=== PATIENT | female | born 1990 | race Caucasian/White ===

== ENCOUNTER 2017-02-20 17:35 | Emergency (ER) | payer BC ==
[~2017-02-20] VITALS: Ht 165.1 cm; Wt 74.8 kg
[~2017-02-20 17:35] MED LIST: ALPR0.254 PO; ALPR0.5T6 PO; DOCU-109 PO; ERYT250T14 PO; LAMO200T3 PO; LAMO25TA PO; METO5VIA4 PO; ONDA4TAB10 SL; OXYC1TAB7 PO; PROM25SU32 PO
[2017-02-20] MEDS ORDERED: FAMOTIDINE 20 MG TABLET. PO ONE (18:00)
[2017-02-20] MEDS ORDERED: HALOPERIDOL LACTATE 5 MG/ML VIAL. IVP ONE (18:00)
[2017-02-20] MEDS ORDERED: IV NORMAL SALINE 1000ML BAG 1,000 ML IV ONE (18:00)
[2017-02-20 18:14] LABS: BASO # 0.1 x10^3/uL (0.0-0.2); BASO % 0 % (0-3); EOS % 0 % (0-3); HEMOGLOBIN 14.8 g/dL (12.0-15.5); LYMPH # 0.8 x10^3/uL (1.0-4.8); LYMPH % 6 % (24-48); MEAN CORPUSCULAR HEMOGLOBIN 31 pg (25-35); MEAN CORPUSCULAR HGB CONC 35 g/dL (31-37); MEAN CORPUSCULAR VOLUME 89 fL (79-100); MONO % 2 % (0-9); NEUT % 92 % (31-73); PLATELET COUNT 364 x10^3/uL (140-400); RED BLOOD COUNT 4.72 x10^6/uL (3.50-5.40); RED CELL DISTRIBUTION WIDTH 13.6 % (11.5-14.5)
[2017-02-20 18:15] LABS: BILIRUBIN,URINE NEGATIVE (NEG); GLUCOSE,URINE 100 mg/dL (NEG); NITRITE,URINE NEGATIVE (NEG); PH,URINE 7.5; PROTEIN,URINE NEGATIVE (NEG-TRACE); UROBILINOGEN,URINE 0.2 mg/dL (0.2 mg/dL)
[2017-02-20 18:17] LABS: BARBITURATES NEG (NEG); BENZODIAZEPINES NEG (NEG); CANNABINOIDS POS (NEG); COCAINE NEG (NEG); METHADONE NEG (NEG); OPIATES POS (NEG); PHENCYCLIDINE NEG (NEG)
[2017-02-20 18:36] LABS: ALBUMIN 4.5 g/dL (3.4-5.0); ALBUMIN/GLOBULIN RATIO 1.3 (1.0-1.7); CALCIUM 8.9 mg/dL (8.5-10.1); CREATININE 0.7 mg/dL (0.6-1.0); GFR 101.1; MAGNESIUM 1.7 mg/dL (1.8-2.4); POTASSIUM 3.7 mmol/L (3.5-5.1); TOTAL BILIRUBIN 0.8 mg/dL (0.2-1.0)
[2017-02-20 18:37] LABS: BACTERIA,URINE FEW /HPF (0-FEW); SQUAMOUS EPITHELIAL CELL,UR MOD /LPF; WBC,URINE 0 /HPF (0-4)
[2017-02-20] MEDS ORDERED: IOHEXOL 300 MG/ML 75 ML VIAL IV ONE (19:00)
[2017-02-20] MEDS ORDERED: CONTRAST GIVEN MC PRN (19:00)
[2017-02-20] MEDS ORDERED: ONDA4TAB10 PO (19:39)
--- NOTE | 2017-02-20 19:39 | PHYS DOC ---
Past Medical History Past Medical History: Anxiety, Bipolar, Depression Additional Past Medical Histor: GASTROPARESIS Past Surgical History: Cholecystectomy Additional Past Surgical Histo: EYE SX Alcohol Use: None Drug Use: Marijuana Social History Narrative: last use today Adult General Chief Complaint Chief Complaint: NAUSEA/VOMITING/DIARRHA HPI HPI Patient is a 26 year old female presenting to the emergency department for evaluation of abdominal pain nausea vomiting that has been going on since this morning. She has been diagnosed with gastroparesis and cyclic vomiting syndrome. Patient is fairly honest with me and says that she smokes marijuana every day. Pain is diffuse and emesis is nonbloody and nonbilious and she says that she is having normal bowel movements. Patient denies any fevers chills dysuria hematuria vaginal bleeding vaginal discharge. Of note patient was just at [employer] [place] prior to coming here and she says the Reglan and Dilaudid did not help. Review of Systems Review of Systems Constitutional: Denies fever or chills [] Respiratory: Denies cough or shortness of breath [] Cardiovascular: No additional information not addressed in HPI [] GI: + abdominal pain, nausea, vomiting. No bloody stools or diarrhea [] : Denies dysuria or hematuria [] Musculoskeletal: Denies back pain or joint pain [] Current Medications Current Medications Current Medications Medications (Trade) Dose Ordered Sig/Oumar Start Time Stop Time Status Last Admin Dose Admin Famotidine (Pepcid) 20 mg 1X ONCE 02/20/17 18:00 02/20/17 18:01 DC 02/20/17 18:19 20 MG Haloperidol Lactate (Haldol) 5 mg 1X ONCE 02/20/17 18:00 02/20/17 18:01 DC 02/20/17 18:19 5 MG Info (Do NOT chart on this entry -- for MONITORING) 1 each PRN DAILY PRN 02/20/17 19:00 02/20/17 20:01 DC Iohexol (Omnipaque 300 Mg/ml) 75 ml 1X ONCE 02/20/17 19:00 02/20/17 19:01 DC 02/20/17 19:14 75 ML Sodium Chloride 1,000 ml @ 1,000 mls/hr 1X ONCE 02/20/17 18:00 02/20/17 18:59 DC 02/20/17 18:19 1,000 MLS/HR Allergies Allergies Allergies Coded Allergies Type Severity Reaction Last Updated Verified No Known Drug Allergies 08/18/15 No Physical Exam Physical Exam Constitutional: Well developed, well nourished, no acute distress, non-toxic appearance. [] Cardiovascular:Heart rate regular rhythm, no murmur [] Lungs & Thorax: Bilateral breath sounds clear to auscultation [] Abdomen: Bowel sounds normal, soft, + diffuse mild tenderness, no rebound or guarding, no masses, no pulsatile masses. [] Current Patient Data Vital Signs Vital Signs Date Time Temp Pulse Resp B/P (MAP) Pulse Ox O2 Delivery O2 Flow Rate FiO2 02/20/17 17:40 98.0 49 18 150/88 (108) 99 Room Air 98.0 Lab Values Laboratory Tests Test 02/20/17 17:04 02/20/17 17:50 02/20/17 17:52 POC Urine HCG, Qualitative Hcg negative (Negative) Urine Collection Type Unknown Urine Color Yellow Urine Clarity Clear Urine pH 7.5 Urine Specific [place] 1.025 Urine Protein Negative mg/dL (NEG-TRACE) Urine Glucose (UA) 100 mg/dL (NEG) Urine Ketones (Stick) 40 mg/dL (NEG) Urine Blood Negative (NEG) Urine Nitrite Negative (NEG) Urine Bilirubin Negative (NEG) Urine Urobilinogen Dipstick 0.2 mg/dL (0.2 mg/dL) Urine Leukocyte Esterase Negative (NEG) Urine RBC 6-10 /HPF (0-2) Urine WBC 0 /HPF (0-4) Urine Squamous Epithelial Cells Mod /LPF Urine Bacteria Few /HPF (0-FEW) Urine Mucus Marked /LPF Urine Opiates Screen Pos (NEG) Urine Methadone Screen Neg (NEG) Urine Barbiturates Neg (NEG) Urine Phencyclidine Screen Neg (NEG) Urine Amphetamine/Methamphetamine Neg (NEG) Urine Benzodiazepines Screen Neg (NEG) Urine Cocaine Screen Neg (NEG) Urine Cannabinoids Screen Pos (NEG) Urine Ethyl Alcohol Neg (NEG) White Blood Count 15.0 x10^3/uL (4.0-11.0) H Red Blood Count 4.72 x10^6/uL (3.50-5.40) Hemoglobin 14.8 g/dL (12.0-15.5) Hematocrit 42.0 % (36.0-47.0) Mean Corpuscular Volume 89 fL (79-100) Mean Corpuscular Hemoglobin 31 pg (25-35) Mean Corpuscular Hemoglobin Concent 35 g/dL (31-37) Red Cell Distribution Width 13.6 % (11.5-14.5) Platelet Count 364 x10^3/uL (140-400) Neutrophils (%) (Auto) 92 % (31-73) H Lymphocytes (%) (Auto) 6 % (24-48) L Monocytes (%) (Auto) 2 % (0-9) Eosinophils (%) (Auto) 0 % (0-3) Basophils (%) (Auto) 0 % (0-3) Neutrophils # (Auto) 13.8 x10^3uL (1.8-7.7) H Lymphocytes # (Auto) 0.8 x10^3/uL (1.0-4.8) L Monocytes # (Auto) 0.3 x10^3/uL (0.0-1.1) Eosinophils # (Auto) 0.0 x10^3/uL (0.0-0.7) Basophils # (Auto) 0.1 x10^3/uL (0.0-0.2) Segmented Neutrophils % 90 % (35-66) H Band Neutrophils % 2 % (0-9) Lymphocytes % 6 % (24-48) L Monocytes % 2 % (0-10) Platelet Estimate Adequate (ADEQUATE) Sodium Level 140 mmol/L (136-145) Potassium Level 3.7 mmol/L (3.5-5.1) Chloride Level 104 mmol/L (98-107) Carbon Dioxide Level 21 mmol/L (21-32) Anion Gap 15 (6-14) H Blood Urea Nitrogen 8 mg/dL (7-20) Creatinine 0.7 mg/dL (0.6-1.0) Estimated GFR (Cockcroft-Gault) 101.1 BUN/Creatinine Ratio 11 (6-20) Glucose Level 140 mg/dL (70-99) H Calcium Level 8.9 mg/dL (8.5-10.1) Magnesium Level 1.7 mg/dL (1.8-2.4) L Total Bilirubin 0.8 mg/dL (0.2-1.0) Aspartate Amino Transferase (AST) 17 U/L (15-37) Alanine Aminotransferase (ALT) 29 U/L (14-59) Alkaline Phosphatase 60 U/L (46-116) Total Protein 8.0 g/dL (6.4-8.2) Albumin 4.5 g/dL (3.4-5.0) Albumin/Globulin Ratio 1.3 (1.0-1.7) Lipase 68 U/L (73-393) L Ethyl Alcohol Level < 10 mg/dL (0-10) Laboratory Tests 02/20/17 17:52 Laboratory Tests 02/20/17 17:52 EKG EKG [] Radiology/Procedures Radiology/Procedures CT abdomen and pelvis with contrast History: Diffuse abdominal pain today Technique: After the administration of intravenous contrast, CT imaging was performed of the abdomen and pelvis. No oral contrast was given as per request. Multiplanar images are reviewed. Exposure: One or more of the following individualized dose reduction techniques were utilized for this examination: 1. Automated exposure control 2. Adjustment of the mA and/or kV according to patient size 3. Use of iterative reconstruction technique. Contrast: 75 cc Omnipaque 300 Comparison: August 23, 2015 Findings: There is no significant abnormality of the visualized lung bases. There is no significant abnormality of the liver, spleen, pancreas, adrenal glands. Both kidneys enhance without hydronephrosis. There has been cholecystectomy. Accurate evaluation of bowel is limited without oral contrast. There is some questionable diffuse mild wall prominence of the colon from the hepatic flexure to the splenic flexure. There is no adjacent inflammatory change. Appendix is not clearly identified. There is no evidence of bowel obstruction, free fluid, or free air. There is now IUD. The bladder has a normal configuration. There is no significant lymphadenopathy. No significant osseous abnormality is identified. Impression: 1. Poorly evaluated without oral contrast, there may be some mild wall thickening diffusely of the transverse colon, colitis a possibility. However there is no significant adjacent inflammatory-type change. Appendix is not clearly identified. Electronically signed by: Julia Bermeo MD (02/20/2017 7:40 PM) [facility] DICTATED and SIGNED BY: JULIA BERMEO MD DATE: 02/20/171931 Course & Med Decision Making Course & Med Decision Making Patient likely has cannabis hyperemesis syndrome and I explained this to the patient. Patient says that she is going to stop smoking marijuana. She is out walking in the hallway asking to be discharged that she has no further nausea vomiting or pain. He has a nonspecific CT findings that I am not going to start her on antibiotics. Patient aware and agreeable with plan for discharge and verbalized understanding of the need for short-term follow-up and strict ER return precautions discussed including worsening pain fevers vomiting or other general concerns. Dragon Disclaimer Dragon Disclaimer This electronic medical record was generated, in whole or in part, using a voice recognition dictation system. Departure Departure Impression: Primary Impression: Nausea and vomiting Additional Impressions: Abdominal pain Leukocytosis Cannabis abuse Disposition: 01 HOME, SELF-CARE Condition: GOOD Referrals: CHRISTY JOVEL (PCP) Patient Instructions: Nausea and Vomiting Scripts Ondansetron (ZOFRAN ODT) 4 Mg Tab.rapdis 4 MG PO BID Y for NAUSEA/VOMITING, #10 TAB Prov: JENN ACE DO 02/20/17 Problem Qualifiers Primary Impression: Nausea and vomiting Vomiting type: unspecified Vomiting Intractability: non-intractable Qualified Codes: R11.2 - Nausea with vomiting, unspecified JENN ACE DO Feb 20, 2017 19:39
[2017-02-20 19:40] VITALS: BP 109/68
--- NOTE | 2017-02-20 19:44 | RAD ---
CT abdomen and pelvis with contrast History: Diffuse abdominal pain today Technique: After the administration of intravenous contrast, CT imaging was performed of the abdomen and pelvis. No oral contrast was given as per request. Multiplanar images are reviewed. Exposure: One or more of the following individualized dose reduction techniques were utilized for this examination: 1. Automated exposure control 2. Adjustment of the mA and/or kV according to patient size 3. Use of iterative reconstruction technique. Contrast: 75 cc Omnipaque 300 Comparison: August 23, 2015 Findings: There is no significant abnormality of the visualized lung bases. There is no significant abnormality of the liver, spleen, pancreas, adrenal glands. Both kidneys enhance without hydronephrosis. There has been cholecystectomy. Accurate evaluation of bowel is limited without oral contrast. There is some questionable diffuse mild wall prominence of the colon from the hepatic flexure to the splenic flexure. There is no adjacent inflammatory change. Appendix is not clearly identified. There is no evidence of bowel obstruction, free fluid, or free air. There is now IUD. The bladder has a normal configuration. There is no significant lymphadenopathy. No significant osseous abnormality is identified. Impression: 1. Poorly evaluated without oral contrast, there may be some mild wall thickening diffusely of the transverse colon, colitis a possibility. However there is no significant adjacent inflammatory-type change. Appendix is not clearly identified. Electronically signed by: Keith Urbina MD (02/20/2017 7:40 PM) [facility]
[2017-02-20 19:54] LABS: PLT ESTIMATE ADEQUATE (ADEQUATE)
== END 2017-02-20 19:52 | disposition home or self-care (01) ==
LOC: ER 17:35
DX: R10.84 Generalized abdominal pain (principal); R11.2 Nausea with vomiting, unspecified; D72.829 Elevated white blood cell count, unspecified; F12.10 Cannabis abuse, uncomplicated; K31.84 Gastroparesis; F41.9 Anxiety disorder, unspecified; F31.9 Bipolar disorder, unspecified; Z90.49 Acquired absence of other specified parts of digestive tract
CPT/HCPCS: 36415; 74177; 80053; 80307; 81001; 81025; 83690; 83735; 85007; 85027; 96361; 96374; 99285; C1887; G0480; J1630; J7030; Q9967; G0479

== ENCOUNTER 2017-02-27 18:12 | Emergency (ER) | payer BC ==
[~2017-02-27 18:12] MED LIST changes: +ONDA4TAB10 PO
[2017-02-27] MEDS ORDERED: FAMOTIDINE 20 MG/2 ML VIAL IVP ONE (19:00)
[2017-02-27] MEDS ORDERED: HALOPERIDOL LACTATE 5 MG/ML VIAL. IVP ONE (19:00)
[2017-02-27] MEDS ORDERED: IV NORMAL SALINE 1000ML BAG 1,000 ML IV ONE (19:00)
--- NOTE | 2017-02-27 19:25 | PHYS DOC ---
Past Medical History Past Medical History: Anxiety, Bipolar, Depression Additional Past Medical Histor: GASTROPARESIS Past Surgical History: Cholecystectomy Additional Past Surgical Histo: EYE SX Alcohol Use: None Drug Use: Marijuana Adult General Chief Complaint Chief Complaint: ABDOMINAL PAIN HPI HPI Patient is a 26 year old female who presents to the ED from home with the complaint of abdominal pain, nausea, vomiting, and diarrhea since this morning. The patient has frequent problems with this symptom complex. She was seen here a week or 2 ago with the same complaints. She states the medication they gave her in the ER last time did seem to help. Chart review shows that she was given IV Haldol and IV Pepcid. Patient tried Reglan at home without relief. She took some Pepto which did help decrease her vomiting. She has vomited several times. No blood in it. She does have diarrhea when she vomits. Chart was reviewed. Last time, Dr. Preston discussed with the patient that he recommends that she quit smoking marijuana and discussed the reasons behind that. I discussed this with the patient and she stated that she has not quit but she "slowed down". She stated "I guess I'll just need to quit". Review of Systems Review of Systems Constitutional: Denies fever or chills [] Respiratory: Denies cough or shortness of breath [] GI: As in history of present illness : Denies possibility of , she has an implant Neurologic: Denies headache, focal weakness or sensory changes [] Current Medications Current Medications Current Medications Medications (Trade) Dose Ordered Sig/Oumar Start Time Stop Time Status Last Admin Dose Admin Famotidine (Pepcid) 20 mg 1X ONCE 02/27/17 19:00 02/27/17 19:02 DC 02/27/17 19:08 20 MG Haloperidol Lactate (Haldol) 5 mg 1X ONCE 02/27/17 19:00 02/27/17 19:02 DC 02/27/17 19:09 5 MG Sodium Chloride 1,000 ml @ 1,000 mls/hr 1X ONCE 02/27/17 19:00 02/27/17 19:59 DC 02/27/17 19:08 1,000 MLS/HR Allergies Allergies Allergies Coded Allergies Type Severity Reaction Last Updated Verified No Known Drug Allergies 08/18/15 No Physical Exam Physical Exam Constitutional: Well developed, well nourished, appears to not feel well, vital signs stable, no active vomiting noted in the ED HENT: Normocephalic, atraumatic, bilateral external ears normal, nose normal. [ ] Eyes: conjunctiva normal, no discharge. [] Neck: Normal range of motion, no stridor. [] Cardiovascular:Heart rate regular rhythm, no murmur [] Lungs & Thorax: Bilateral breath sounds clear to auscultation [] Abdomen: Bowel sounds normal, soft, nondistended, no masses, no pulsatile masses. Mild generalized tenderness to palpation, no localized tenderness. No rebound or guarding. Skin: Warm, dry, no erythema, no rash. [] Extremities: No tenderness, no cyanosis, no clubbing, ROM intact, no edema. [] Neurologic: Alert and oriented X 3, normal motor function, normal sensory function, no focal deficits noted. [] Current Patient Data Vital Signs Vital Signs Date Time Temp Pulse Resp B/P (MAP) Pulse Ox O2 Delivery O2 Flow Rate FiO2 02/27/17 19:36 64 112/58 (76) 98 Room Air 02/27/17 18:22 97.7 18 97.7 Lab Values Laboratory Tests Test 02/27/17 17:34 POC Urine HCG, Qualitative Hcg negative (Negative) EKG EKG [] Radiology/Procedures Radiology/Procedures [] Course & Med Decision Making Course & Med Decision Making Pertinent Labs and Imaging studies reviewed. (See chart for details) 26 year old female presents with nausea and vomiting all day with abdominal pain. I reviewed the patient's record. She has been here multiple times for the same presentation. She has had blood tests done each time and has never had an acute finding. On her recent visit she did have CT scan that was negative for acute findings. Last time, IV Haldol and Pepcid did help her symptoms. She states usually Zofran doesn't help and Reglan may or may not help. We talked about a plan and agreed on a liter of normal saline and IV Haldol and Pepcid. Patient wanted "something for pain" and I discussed with her that I typically do not use IV opiates for recurrent chronic abdominal pain without diagnosis and discussed the reasons why. She understands that. I believe treating her vomiting will help her pain. Also, I reiterated the importance of stopping marijuana usage. Patient felt better after IV fluids and medications and felt like going home. See instructions for plan. [] Dragon Disclaimer Dragon Disclaimer This electronic medical record was generated, in whole or in part, using a voice recognition dictation system. Departure Departure Impression: Primary Impression: Nausea and vomiting Additional Impressions: Chronic abdominal pain Cannabis abuse Dehydration, mild Disposition: 01 HOME, SELF-CARE Condition: IMPROVED Referrals: CHRISTY JOVEL (PCP) Patient Instructions: Nausea and Vomiting, [id number] Additional Instructions: As we discussed, we do recommend that you quit using marijuana because marijuana can worsen nausea and vomiting. Stick with clear liquids for the next several hours and then small amounts of bland foods. Follow up with your primary care doctor as planned. Problem Qualifiers PONCHO THRASHER MD Feb 27, 2017 19:25
[2017-02-27 19:36] VITALS: BP 112/58
== END 2017-02-27 20:18 | disposition home or self-care (01) ==
LOC: ER 18:12
DX: R11.2 Nausea with vomiting, unspecified (principal); G89.29 Other chronic pain; R10.84 Generalized abdominal pain; E86.0 Dehydration; R19.7 Diarrhea, unspecified; F12.10 Cannabis abuse, uncomplicated; F41.9 Anxiety disorder, unspecified; F31.9 Bipolar disorder, unspecified; Z90.49 Acquired absence of other specified parts of digestive tract
CPT/HCPCS: 81025; 96361; 96374; 96375; 99284; J1630; J7030; S0028

== ENCOUNTER 2017-09-02 11:01 | Emergency (ER) | payer BC ==
[2017-09-02] MEDS ORDERED: ONDANSETRON ODT 4 MG TAB.RAPDIS. PO ×2 (11:30)
[2017-09-02 12:11] LABS: BILIRUBIN,URINE NEGATIVE (NEG); CLARITY,URINE TURBID; COLOR,URINE YELLOW; GLUCOSE,URINE NEGATIVE (NEG); NITRITE,URINE NEGATIVE (NEG); PROTEIN,URINE NEGATIVE (NEG-TRACE); UROBILINOGEN,URINE 0.2 mg/dL (0.2 mg/dL)
[2017-09-02 12:17] LABS: BARBITURATES NEG (NEG); BENZODIAZEPINES NEG (NEG); CANNABINOIDS POS (NEG); COCAINE NEG (NEG); METHADONE NEG (NEG); OPIATES NEG (NEG); PHENCYCLIDINE NEG (NEG)
[2017-09-02 12:19] LABS: AMPHETAMINE/METHAMPHETAMINE NEG (NEG); ETHANOL, URINE NEG (NEG)
[2017-09-02] MEDS: HALOPERIDOL LACTATE 5 MG/ML VIAL. IVP ×2 (12:20)
[2017-09-02] MEDS: IV NORMAL SALINE 1000ML BAG 1,000 ML IV ×2 (12:20)
[2017-09-02 12:22] LABS: BACTERIA,URINE 0 /HPF (0-FEW); RBC,URINE 0 /HPF (0-2); WBC,URINE 0 /HPF (0-4)
[2017-09-02 12:23] LABS: AMORPHOUS SEDIMENT,UR PRESENT /HPF; SQUAMOUS EPITHELIAL CELL,UR FEW /LPF
[2017-09-02 12:30] LABS: BASO # 0.1 x10^3/uL (0.0-0.2); BASO % 1 % (0-3); EOS % 0 % (0-3); HEMOGLOBIN 14.4 g/dL (12.0-15.5); LYMPH % 9 % (24-48); MEAN CORPUSCULAR HEMOGLOBIN 31 pg (25-35); MEAN CORPUSCULAR HGB CONC 34 g/dL (31-37); MEAN CORPUSCULAR VOLUME 90 fL (79-100); MONO # 0.3 x10^3/uL (0.0-1.1); MONO % 2 % (0-9); NEUT # 10.6 x10^3uL (1.8-7.7); NEUT % 88 % (31-73); PLATELET COUNT 391 x10^3/uL (140-400); RED BLOOD COUNT 4.68 x10^6/uL (3.50-5.40); RED CELL DISTRIBUTION WIDTH 13.7 % (11.5-14.5)
[2017-09-02 12:32] LABS: ANION GAP 13 (6-14); BLOOD UREA NITROGEN 9 mg/dL (7-20); BUN/CREATININE RATIO 15 (6-20); CALCIUM 9.6 mg/dL (8.5-10.1); CARBON DIOXIDE 23 mmol/L (21-32); CHLORIDE 104 mmol/L (98-107); CREATININE 0.6 mg/dL (0.6-1.0); GFR 120.8; GLUCOSE 144 mg/dL (70-99); POTASSIUM 3.7 mmol/L (3.5-5.1); SODIUM 140 mmol/L (136-145)
[2017-09-02 12:37] LABS: ALBUMIN 4.3 g/dL (3.4-5.0); ALBUMIN/GLOBULIN RATIO 1.3 (1.0-1.7); ALK PHOS 57 U/L (46-116); ALT (SGPT) 25 U/L (14-59); AST (SGOT) 16 U/L (15-37); LIPASE 79 U/L (73-393); TOTAL BILIRUBIN 0.3 mg/dL (0.2-1.0); TOTAL PROTEIN 7.5 g/dL (6.4-8.2)
[2017-09-02 12:41] LABS: ADD MAN DIFF? y
[2017-09-02 14:20] LABS: SEDIMENTATION RATE 3 (0-25)
[2017-09-02 14:22] LABS: % BANDS 1 % (0-9); % LYMPHS 4 % (24-48); % MONOS 1 % (0-10); % SEGS 94 % (35-66)
[2017-09-02 14:23] LABS: PLT ESTIMATE ADEQUATE (ADEQUATE); TOXIC GRANULATION SLIGHT
== END 2017-09-02 14:40 | disposition home or self-care (01) ==
LOC: ER 11:01
DX: R11.2 Nausea with vomiting, unspecified (principal); F12.10 Cannabis abuse, uncomplicated; R10.13 Epigastric pain; F41.9 Anxiety disorder, unspecified; F31.9 Bipolar disorder, unspecified; Z90.49 Acquired absence of other specified parts of digestive tract
CPT/HCPCS: 36415; 80053; 80307; 81001; 83690; 85007; 85025; 85651; 96361; 96374; 99284-25; J1630; J7030

== ENCOUNTER 2020-03-18 11:13 | Observation (INO) | payer BC ==
[~2020-03-18] VITALS: Ht 165.1 cm; Wt 94.0 kg
[~2020-03-18 11:13] MED LIST changes: -LAMO25TA PO; +LAMO25TA9 PO
[2020-03-18] MEDS ORDERED: IV NORMAL SALINE 1000ML BAG 1,000 ML IV ONE ×2 (11:47→14:30)
[2020-03-18 12:13] LABS: BILIRUBIN,URINE NEGATIVE (NEG); CLARITY,URINE CLOUDY; COLOR,URINE AMBER; NITRITE,URINE NEGATIVE (NEG); PH,URINE 5.5 (<5.0-8.0); PROTEIN,URINE 30 mg/dL (NEG-TRACE); UROBILINOGEN,URINE 0.2 mg/dL (0.2 mg/dL)
[2020-03-18] MEDS ORDERED: ONDANSETRON PF 4 MG/2 ML VIAL. IV ONE (12:15)
--- NOTE | 2020-03-18 12:19 | PHYS DOC ---
Past Medical History Past Medical History: Anxiety, Bipolar, Depression Additional Past Medical Histor: GASTROPARESIS Past Surgical History: Cholecystectomy Additional Past Surgical Histo: EYE SX Smoking Status: Current Every Day Smoker Alcohol Use: None Drug Use: Marijuana General Adult EDM: Chief Complaint: ABDOMINAL PAIN HPI: HPI: 29-year-old female presenting with abdominal pain. She describes a moderate pain in the mid abdomen that is a sharp pain that is nonradiating without alleviating factors. Her pain is not in the pelvis or adenexa. It is associated with vomiting. Her vomitus is nonbloody. She denies any blood in her stools. She has a history of a cholecystectomy. Her symptoms started this morning. She reports yesterday she was feeling fine. Review of systems negative for chest pain shortness of breath fevers chills headache nuchal rigidity or head injury. All other review of systems negative. ED course: 29-year-old female presenting with abdominal pain. Vital signs show afebrile. Pulse mildly elevated. Blood pressure elevated. Abdominal exam is soft and nontender. CBC shows nonspecific leukocytosis of 15.1. Chemistry pa charles is unremarkable. Urinalysis shows cloudy urine with increased specific gravity and ketones. Moderate epithelial cells, contaminated. Not suggestive of UTI. negative. On reexamination the patient continues to have abdominal pain after IV fluids and IV pain medication. We will admit the patient for serial abdominal exams and for GI consultation. Heart Score: Risk Factors: Risk Factors: DM, Current or recent (<one month) smoker, HTN, HLP, family history of CAD, obesity. Risk Scores: Score 0 - 3: 2.5% MACE over next 6 weeks - Discharge Home Score 4 - 6: 20.3% MACE over next 6 weeks - Admit for Clinical Observation Score 7 - 10: 72.7% MACE over next 6 weeks - Early Invasive Strategies Current Medications: Current Medications Medications (Trade) Dose Ordered Sig/Oumar Start Time Stop Time Status Last Admin Dose Admin Ondansetron HCl (Zofran) 4 mg 1X ONCE 03/18/20 12:15 03/18/20 12:16 Sodium Chloride 1,000 ml @ 1,000 mls/hr Q1H ONCE 03/18/20 11:47 03/18/20 12:46 Allergies: Allergies: Allergies Coded Allergies Type Severity Reaction Last Updated Verified No Known Drug Allergies 08/18/15 No Physical Exam: PE: Constitutional: Well developed, well nourished, no acute distress, non-toxic appearance. [] HENT: Normocephalic, atraumatic, bilateral external ears normal, oropharynx moist, no oral exudates, nose normal. [] Eyes: PERRLA, EOMI, conjunctiva normal, no discharge. [] Neck: Normal range of motion, no tenderness, supple, no stridor. [] Cardiovascular:Heart rate regular rhythm, no murmur [] Lungs & Thorax: Bilateral breath sounds clear to auscultation [] Abdomen: Bowel sounds normal, soft, no tenderness, no masses, no pulsatile masses. [] Negative McBurney's point. Negative Mathis sign. Skin: Warm, dry, no erythema, no rash. [] Back: No tenderness, no CVA tenderness. [] Extremities: No tenderness, no cyanosis, no clubbing, ROM intact, no edema. [] Neurologic: Alert and oriented X 3, normal motor function, normal sensory function, no focal deficits noted. [] Psychologic: Affect normal, judgement normal, mood normal. [] Current Patient Data: Labs: Laboratory Tests Test 03/18/20 11:57 POC Urine HCG, Qualitative Hcg negative (Negative) EKG: EKG: [] Radiology/Procedures: Radiology/Procedures: [] Course & Med Decision Making: Course & Med Decision Making Pertinent Labs and Imaging studies reviewed. (See chart for details) [] Dragon Disclaimer: Dragon Disclaimer: This electronic medical record was generated, in whole or in part, using a voice recognition dictation system. Departure Departure Impression: Primary Impression: Abdominal pain Disposition: ADMITTED INPATIENT Condition: STABLE Referrals: HCRISTY JOVEL (PCP) Patient Instructions: Abdominal Pain (Nonspecific) Justicifation of Admission Dx: Justifications for Admission: Justification of Admission Dx: Yes Comments: Intractable abdominal pain and nausea JAGUAR KHANNA MD Mar 18, 2020 12:19
[2020-03-18 12:29] LABS: BASO # 0.1 x10^3/uL (0.0-0.2); BASO % 1 % (0-3); EOS % 0 % (0-3); HEMATOCRIT 45.1 % (36.0-47.0); HEMOGLOBIN 15.5 g/dL (12.0-15.5); LYMPH # 1.5 x10^3/uL (1.0-4.8); LYMPH % 10 % (24-48); MEAN CORPUSCULAR HEMOGLOBIN 31 pg (25-35); MEAN CORPUSCULAR HGB CONC 34 g/dL (31-37); MEAN CORPUSCULAR VOLUME 89 fL (79-100); MONO # 0.3 x10^3/uL (0.0-1.1); MONO % 2 % (0-9); NEUT # 13.2 x10^3/uL (1.8-7.7); NEUT % 88 % (31-73); PLATELET COUNT 454 x10^3/uL (140-400); RED BLOOD COUNT 5.08 x10^6/uL (3.50-5.40); RED CELL DISTRIBUTION WIDTH 14.3 % (11.5-14.5); WHITE BLOOD COUNT 15.1 x10^3/uL (4.0-11.0)
[2020-03-18] MEDS ORDERED: HYDROmorphone 2 MG/ML VIAL IVP ONE (12:30)
[2020-03-18] MEDS ORDERED: METOCLOPRAMIDE 10 MG TABLET. PO ONE (12:30)
[2020-03-18 12:34] LABS: AMORPHOUS SEDIMENT,UR PRESENT /HPF; BACTERIA,URINE 0 /HPF (0-FEW); SQUAMOUS EPITHELIAL CELL,UR MOD /LPF
[2020-03-18 12:35] LABS: HYALINE CASTS, URINE MODERATE /HPF
[2020-03-18 12:38] LABS: PREG TEST PT QUAL NEGATIVE (NEG)
[2020-03-18 12:39] LABS: CALCIUM 8.4 mg/dL (8.5-10.1); CREATININE 0.7 mg/dL (0.6-1.0); GFR 98.9; POTASSIUM 4.1 mmol/L (3.5-5.1)
[2020-03-18 12:42] LABS: ALBUMIN 3.2 g/dL (3.4-5.0); ALBUMIN/GLOBULIN RATIO 0.9 (1.0-1.7); TOTAL BILIRUBIN 0.3 mg/dL (0.2-1.0); TOTAL PROTEIN 6.6 g/dL (6.4-8.2)
[2020-03-18] MEDS ORDERED: METOCLOPRAMIDE HCL 10 MG/2 ML VIAL. IVP ONE (13:00)
[2020-03-18] MEDS ORDERED: IOHEXOL 300 MG/ML 100ML VIAL. IV ONE (13:00)
[2020-03-18] MEDS ORDERED: CONTRAST GIVEN. MC PRN (13:00)
[2020-03-18] MEDS ORDERED: PIPERACILLIN/TAZOBACTAM 3.375 GM in IV NORMAL SALINE 50ML 50 ML IV ONE (13:15)
--- NOTE | 2020-03-18 14:02 | RAD ---
CT abdomen and pelvis with contrast History: Abdominal pain, vomiting Technique: After the administration of intravenous contrast, CT imaging was performed of the abdomen and pelvis. No oral contrast was given. Multiplanar images are reviewed. Exposure: One or more of the following individualized dose reduction techniques were utilized for this examination: 1. Automated exposure control 2. Adjustment of the mA and/or kV according to patient size 3. Use of iterative reconstruction technique. Comparison: None Findings: There is no significant abnormality of the visualized lung bases. There is no significant abnormality of the liver, spleen, pancreas, adrenal glands. Both kidneys enhance without hydronephrosis. There again has been cholecystectomy. Accurate evaluation of bowel is limited without oral contrast. Despite the lack of oral contrast, there is appearance of [id number] wall thickening ascending through the transverse colon and likely minimally of the proximal descending colon, no significant adjacent inflammatory-type change. Normal caliber appendix is visualized without adjacent inflammatory change. There is IUD present in the uterus. There is a 1.3 cm likely cyst of the left adnexa. There is T12-L1 degenerative disc disease. Impression: 1. There is degree of wall thickening of the ascending through the proximal descending colon, evidence of colitis although no adjacent inflammatory change. There is no CT evidence of acute appendicitis. 2. There is likely small cyst of the left adnexa. Electronically signed by: Keith Urbina MD (03/18/2020 1:59 PM) [facility]
[2020-03-18 14:26] LABS: % LYMPHS 12 % (24-48); % MONOS 1 % (0-10); % SEGS 87 % (35-66); PLT ESTIMATE INCREASED (ADEQUATE)
[2020-03-18] MEDS ORDERED: HALOPERIDOL LACTATE 5 MG/ML VIAL. IM ONE (14:30)
[2020-03-18] MEDS ORDERED: IV NORMAL SALINE 1000ML BAG 1,000 ML IV SCH (14:31)
--- NOTE | 2020-03-18 16:45 | PDOC2 ---
GI CONSULT Date of Service: DATE: 03/18/20 TIME: 16:35 Reason For Consult: abd pain, colitis HPI: HPI: 29 y/o female in ER who says she has been sick for years. Sees Dr. Burak Baugh. 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 Also was told she probably has IBS. On this occasion, she says she was called with abnormal lab results yesterday - low WBC? - referred to hematology. She looked this up online and got nervous. Today, she has had diffuse abdominal pressure and vomiting. Also had two episodes of diarrhea. H/o reflux. No dysphagia, hematemesis, chronic diarrhea, constipation, hematochezia, melena, or weight loss. H/o delayed gastric emptying in 2016 - has taken Reglan and e-mycin in the past - off these now. S/p cholecystectomy. No previous colonoscopy. H/o marijuana use - says uses CBD now. No NSAIDs. PMH: PMH: anxiety, depression, bipolar cholecystectomy FH: Family History: No pertinent hx Social History: ALCOHOL: rare Drugs: Marijuana (CBD only) ROS: GEN: Denies fevers, chills, sweats HEENT: Denies blurred vision, sore throat CV: Denies chest pain RESP: Denies shortness of air, cough GI: Per HPI : Denies hematuria, dysuria ENDO: Denies weight changes NEURO: Denies confusion, dizziness MSK: Denies weakness, joint pain/swelling SKIN: Denies jaundice, pruritus Vitals: Vitals: Vital Signs Date Time Temp Pulse Resp B/P (MAP) Pulse Ox O2 Delivery O2 Flow Rate FiO2 03/18/20 12:31 20 03/18/20 12:15 98.0 106 163/93 (116) 93 Room Air 98.0 Labs: Labs: Laboratory Tests Test 03/18/20 11:46 03/18/20 11:57 03/18/20 12:10 Urine Collection Type Unknown Urine Color Sujatha Urine Clarity Cloudy Urine pH 5.5 (<5.0-8.0) Urine Specific [place] >=1.030 (1.000-1.030) Urine Protein 30 mg/dL (NEG-TRACE) Urine Glucose (UA) Negative mg/dL (NEG) Urine Ketones (Stick) >=80 mg/dL (NEG) Urine Blood Trace (NEG) Urine Nitrite Negative (NEG) Urine Bilirubin Negative (NEG) Urine Urobilinogen Dipstick 0.2 mg/dL (0.2 mg/dL) Urine Leukocyte Esterase Negative (NEG) Urine RBC 3-5 /HPF (0-2) Urine WBC 1-4 /HPF (0-4) Urine Squamous Epithelial Cells Mod /LPF Urine Amorphous Sediment Present /HPF Urine Bacteria 0 /HPF (0-FEW) Urine Hyaline Casts Moderate /HPF Urine Mucus Marked /LPF Bedside Urine HCG, Qualitative Hcg negative (Negative) White Blood Count 15.1 x10^3/uL (4.0-11.0) Red Blood Count 5.08 x10^6/uL (3.50-5.40) Hemoglobin 15.5 g/dL (12.0-15.5) Hematocrit 45.1 % (36.0-47.0) Mean Corpuscular Volume 89 fL (79-100) Mean Corpuscular Hemoglobin 31 pg (25-35) Mean Corpuscular Hemoglobin Concent 34 g/dL (31-37) Red Cell Distribution Width 14.3 % (11.5-14.5) Platelet Count 454 x10^3/uL (140-400) Neutrophils (%) (Auto) 88 % (31-73) Lymphocytes (%) (Auto) 10 % (24-48) Monocytes (%) (Auto) 2 % (0-9) Eosinophils (%) (Auto) 0 % (0-3) Basophils (%) (Auto) 1 % (0-3) Neutrophils # (Auto) 13.2 x10^3/uL (1.8-7.7) Lymphocytes # (Auto) 1.5 x10^3/uL (1.0-4.8) Monocytes # (Auto) 0.3 x10^3/uL (0.0-1.1) Eosinophils # (Auto) 0.0 x10^3/uL (0.0-0.7) Basophils # (Auto) 0.1 x10^3/uL (0.0-0.2) Segmented Neutrophils % 87 % (35-66) Lymphocytes % 12 % (24-48) Monocytes % 1 % (0-10) Platelet Estimate Increased (ADEQUATE) Sodium Level 141 mmol/L (136-145) Potassium Level 4.1 mmol/L (3.5-5.1) Chloride Level 104 mmol/L (98-107) Carbon Dioxide Level 30 mmol/L (21-32) Anion Gap 7 (6-14) Blood Urea Nitrogen 15 mg/dL (7-20) Creatinine 0.7 mg/dL (0.6-1.0) Estimated GFR (Cockcroft-Gault) 98.9 BUN/Creatinine Ratio 21 (6-20) Glucose Level 181 mg/dL (70-99) Calcium Level 8.4 mg/dL (8.5-10.1) Total Bilirubin 0.3 mg/dL (0.2-1.0) Aspartate Amino Transf (AST/SGOT) 23 U/L (15-37) Alanine Aminotransferase (ALT/SGPT) 31 U/L (14-59) Alkaline Phosphatase 106 U/L (46-116) Total Protein 6.6 g/dL (6.4-8.2) Albumin 3.2 g/dL (3.4-5.0) Albumin/Globulin Ratio 0.9 (1.0-1.7) Lipase 178 U/L (73-393) Serum Test, Qualitative Negative (NEG) Allergies: Coded Allergies: No Known Drug Allergies (Unverified , 08/18/15) Medications: Current Medications Medications (Trade) Dose Ordered Sig/Oumar Route PRN Reason Start Time Stop Time Status Last Admin Dose Admin Sodium Chloride 1,000 ml @ 1,000 mls/hr Q1H ONCE IV 03/18/20 11:47 03/18/20 12:46 DC 03/18/20 12:32 Ondansetron HCl (Zofran) 4 mg 1X ONCE IV 03/18/20 12:15 03/18/20 12:16 DC 03/18/20 12:31 Hydromorphone HCl (Dilaudid) 0.5 mg 1X ONCE IVP 03/18/20 12:30 03/18/20 12:31 DC 03/18/20 12:31 Metoclopramide HCl (Reglan Vial) 10 mg 1X ONCE IVP 03/18/20 13:00 03/18/20 13:01 DC 03/18/20 14:44 Iohexol (Omnipaque 300 Mg/ml) 75 ml 1X ONCE IV 03/18/20 13:00 03/18/20 13:01 DC 03/18/20 13:15 Piperacillin Sod/ Tazobactam Sod 3.375 gm/Sodium Chloride 50 ml @ 100 mls/hr 1X ONCE IV 03/18/20 13:15 03/18/20 13:44 DC 03/18/20 13:30 Sodium Chloride 1,000 ml @ 1,000 mls/hr 1X ONCE IV 03/18/20 14:30 03/18/20 15:29 DC 03/18/20 14:43 Haloperidol Lactate (Haldol Inj) 5 mg 1X ONCE IM 03/18/20 14:30 03/18/20 14:33 DC 03/18/20 14:45 Imaging: Imaging: CT A/P 03/18/20 Impression: 1. There is degree of wall thickening of the ascending through the proximal descending colon, evidence of colitis although no adjacent inflammatory change. There is no CT evidence of acute appendicitis. 2. There is likely small cyst of the left adnexa. IOC 2016 IMPRESSION: No significant abnormality is detected. GES 2016 Findings: The stomach empties into the small bowel somewhat slowly. The gastric emptying half time is 260 minutes (normal is 66 +/- 22 minutes). Impression: Delayed gastric emptying. RUQ US 2016 IMPRESSION: No significant finding seen in the right upper quadrant in a patient status post recent cholecystectomy SBS 2015 IMPRESSION Normal small-bowel follow-through. PE: GEN: NAD HEENT: Atraumatic, PERRLA LUNGS: CTAB HEART: RRR, no murmurs ABD: NABS, S/ND/NT, no masses EXTREMITY: No edema SKIN: No rashes, no jaundice NEURO/PSYCH: A & O 3 A/P: A/P: Abd pain, vomiting, diarrhea Leukocytosis, thrombocytosis Abnormal CT - "degree of wall thickening of the ascending through the proximal descending colon" H/o GERD/Morris's - on PPI H/o delayed gastric emptying ?IBS CRC screen - average risk H/o marijuana use R/o COVID -- IV PPI for now. Okay to try clears, ADAT per GI. If diarrhea recurs, consider stool tests. ?need for atbx - will review w/ VIVI Lazcano Mar 18, 2020 16:45
[2020-03-18] MEDS: PANTOPRAZOLE IV PUSH 40 MG VIAL. IVP SCH (17:45)
--- NOTE | 2020-03-18 19:55 | PDOC1 ---
History and Physical Date of Admission Date of Admission DATE: 03/18/20 TIME: 19:53 Identification/Chief Complaint Chief Complaint Intractable nausea/vomiting Source Source: Patient History of Present Illness History of Present Illness Patient is a 29 yo female who presents with complaint of diffuse abdominal pain, associated vomiting, and diarrhea for 1 day. She reports abdominal pain 8/10, greather than 10 episodes of non-bloody vomiting, and 2 episodes of non-bloody diarrhea. She has a history of similar symptoms that have been recurrent over the past 5 years. She is followed by GI, without any specific diagnosis to date. She admits to regular marijuana use. She denies any fever, chills, cough, or sore throat. Past Medical History Psych: Anxiety, Bipolar Past Surgical History Past Surgical History: Cholecystectomy, No pertinent history Family History Family History: Obesity Social History Smoke: <1 pack per day ALCOHOL: rare Drugs: Marijuana (CBD only) Current Problem List Problem List Problems Medical Problems: (1) Abdominal pain Status: Acute Problems: (1) Intractable nausea and vomiting (2) Malnutrition (3) Cannabis hyperemesis syndrome concurrent with and due to cannabis abuse (4) Colitis Current Medications Current Medications Current Medications Sodium Chloride 1,000 ml @ 1,000 mls/hr Q1H ONCE IV Last administered on 03/18/20at 12:32; Start 03/18/20 at 11:47; Stop 03/18/20 at 12:46; Status DC Ondansetron HCl (Zofran) 4 mg 1X ONCE IV Last administered on 03/18/20at 12:31; Start 03/18/20 at 12:15; Stop 03/18/20 at 12:16; Status DC Metoclopramide HCl (Reglan) 10 mg 1X ONCE PO ; Start 03/18/20 at 12:30; Stop 03/18/20 at 12:55; Status DC Hydromorphone HCl (Dilaudid) 0.5 mg 1X ONCE IVP Last administered on 03/18/20at 12:31; Start 03/18/20 at 12:30; Stop 03/18/20 at 12:31; Status DC Metoclopramide HCl (Reglan Vial) 10 mg 1X ONCE IVP Last administered on 03/18/20at 14:44; Start 03/18/20 at 13:00; Stop 03/18/20 at 13:01; Status DC Iohexol (Omnipaque 300 Mg/ml) 75 ml 1X ONCE IV Last administered on 03/18/20at 13:15; Start 03/18/20 at 13:00; Stop 03/18/20 at 13:01; Status DC Info (CONTRAST GIVEN -- Rx MONITORING) 1 each PRN DAILY PRN MC SEE COMMENTS; Start 03/18/20 at 13:00; Stop 03/20/20 at 12:59 Piperacillin Sod/ Tazobactam Sod 3.375 gm/Sodium Chloride 50 ml @ 100 mls/hr 1X ONCE IV Last administered on 03/18/20at 13:30; Start 03/18/20 at 13:15; Stop 03/18/20 at 13:44; Status DC Sodium Chloride 1,000 ml @ 1,000 mls/hr 1X ONCE IV Last administered on 03/18/20at 14:43; Start 03/18/20 at 14:30; Stop 03/18/20 at 15:29; Status DC Haloperidol Lactate (Haldol Inj) 5 mg 1X ONCE IM Last administered on 03/18/20at 14:45; Start 03/18/20 at 14:30; Stop 03/18/20 at 14:33; Status DC Sodium Chloride 1,000 ml @ 100 mls/hr Q10H IV Last administered on 03/18/20at 17:46; Start 03/18/20 at 14:31; Stop 03/18/20 at 18:30; Status DC Pantoprazole Sodium (PROTONIX VIAL for IV PUSH) 40 mg DAILYAC IVP Last administered on 03/18/20at 17:45; Start 03/18/20 at 17:30 Active Scripts Active Zofran Odt (Ondansetron) 4 Mg Tab.rapdis 1 Tab SL Q8HRS Zofran Odt (Ondansetron) 4 Mg Tab.rapdis 4 Mg PO BID PRN Phenergan (Promethazine HCl) 25 Mg Supp.rect 25 Mg PO PRN Q6HRS PRN Metoclopramide Hcl 5 Mg/1 Ml Vial 10 Mg PO Q8HRS PRN Zofran Odt (Ondansetron) 4 Mg Tab.rapdis 1 Tab SL Q8HRS Reported Alprazolam 0.5 Mg Tablet 0.5 Mg PO PRN Q6HRS PRN Allergies Allergies: Coded Allergies: No Known Drug Allergies (Unverified , 08/18/15) ROS General: No: Chills, Night Sweats PSYCHOLOGICAL ROS: No: Anxiety, Depression Eyes: No Blurry vision, No Double vision HEENT: No: Heacaches, Sore Throat ALLERGY AND IMMUNOLOGY: No: Itchy/Watery Eyes, Nasal Congestion Hematological and Lymphatic: No: Blood Clots, Night Sweats Respiratory: No: Cough, Pleuritic Pain, Shortness of breath Cardiovascular: No Chest Pain, No Palpitations Gastrointestinal: Yes Nausea, Yes Vomiting, Yes Abdominal Pain, Yes Diarrhea Genitourinary: No Dysuria, No Frequency Musculoskeletal: No Joint Pain, No Joint Swelling Neurological: No Confusion, No Dizziness, No Headaches Skin: No Pruritus, No Rash Physical Exam General: Alert, Oriented X3, Cooperative, No acute distress HEENT: PERRLA Lungs: Clear to auscultation, Normal air movement Heart: RRR, no murmurs Cardiovascular: S1, S2 Abdomen: Soft, Other (Generalized abdominal tenderness) Extremities: No clubbing, No cyanosis Skin: No rashes, No breakdown Neuro: Normal speech, Sensation intact Psych/Mental Status: Mental status NL Vitals Vitals Vital Signs Date Time Temp Pulse Resp B/P (MAP) Pulse Ox O2 Delivery O2 Flow Rate FiO2 03/18/20 19:28 90 20 135/86 (102) 94 Room Air 03/18/20 12:15 98.0 98.0 Labs Labs Laboratory Tests Test 03/18/20 11:46 03/18/20 11:57 03/18/20 12:10 Urine Collection Type Unknown Urine Color Sujatha Urine Clarity Cloudy Urine pH 5.5 (<5.0-8.0) Urine Specific [place] >=1.030 (1.000-1.030) Urine Protein 30 mg/dL (NEG-TRACE) Urine Glucose (UA) Negative mg/dL (NEG) Urine Ketones (Stick) >=80 mg/dL (NEG) Urine Blood Trace (NEG) Urine Nitrite Negative (NEG) Urine Bilirubin Negative (NEG) Urine Urobilinogen Dipstick 0.2 mg/dL (0.2 mg/dL) Urine Leukocyte Esterase Negative (NEG) Urine RBC 3-5 /HPF (0-2) Urine WBC 1-4 /HPF (0-4) Urine Squamous Epithelial Cells Mod /LPF Urine Amorphous Sediment Present /HPF Urine Bacteria 0 /HPF (0-FEW) Urine Hyaline Casts Moderate /HPF Urine Mucus Marked /LPF Bedside Urine HCG, Qualitative Hcg negative (Negative) White Blood Count 15.1 x10^3/uL (4.0-11.0) Red Blood Count 5.08 x10^6/uL (3.50-5.40) Hemoglobin 15.5 g/dL (12.0-15.5) Hematocrit 45.1 % (36.0-47.0) Mean Corpuscular Volume 89 fL (79-100) Mean Corpuscular Hemoglobin 31 pg (25-35) Mean Corpuscular Hemoglobin Concent 34 g/dL (31-37) Red Cell Distribution Width 14.3 % (11.5-14.5) Platelet Count 454 x10^3/uL (140-400) Neutrophils (%) (Auto) 88 % (31-73) Lymphocytes (%) (Auto) 10 % (24-48) Monocytes (%) (Auto) 2 % (0-9) Eosinophils (%) (Auto) 0 % (0-3) Basophils (%) (Auto) 1 % (0-3) Neutrophils # (Auto) 13.2 x10^3/uL (1.8-7.7) Lymphocytes # (Auto) 1.5 x10^3/uL (1.0-4.8) Monocytes # (Auto) 0.3 x10^3/uL (0.0-1.1) Eosinophils # (Auto) 0.0 x10^3/uL (0.0-0.7) Basophils # (Auto) 0.1 x10^3/uL (0.0-0.2) Segmented Neutrophils % 87 % (35-66) Lymphocytes % 12 % (24-48) Monocytes % 1 % (0-10) Platelet Estimate Increased (ADEQUATE) Sodium Level 141 mmol/L (136-145) Potassium Level 4.1 mmol/L (3.5-5.1) Chloride Level 104 mmol/L (98-107) Carbon Dioxide Level 30 mmol/L (21-32) Anion Gap 7 (6-14) Blood Urea Nitrogen 15 mg/dL (7-20) Creatinine 0.7 mg/dL (0.6-1.0) Estimated GFR (Cockcroft-Gault) 98.9 BUN/Creatinine Ratio 21 (6-20) Glucose Level 181 mg/dL (70-99) Calcium Level 8.4 mg/dL (8.5-10.1) Total Bilirubin 0.3 mg/dL (0.2-1.0) Aspartate Amino Transf (AST/SGOT) 23 U/L (15-37) Alanine Aminotransferase (ALT/SGPT) 31 U/L (14-59) Alkaline Phosphatase 106 U/L (46-116) Total Protein 6.6 g/dL (6.4-8.2) Albumin 3.2 g/dL (3.4-5.0) Albumin/Globulin Ratio 0.9 (1.0-1.7) Lipase 178 U/L (73-393) Serum Test, Qualitative Negative (NEG) Laboratory Tests Test 03/18/20 11:46 03/18/20 11:57 03/18/20 12:10 Urine Collection Type Unknown Urine Color Sujatha Urine Clarity Cloudy Urine pH 5.5 (<5.0-8.0) Urine Specific [place] >=1.030 (1.000-1.030) Urine Protein 30 mg/dL (NEG-TRACE) Urine Glucose (UA) Negative mg/dL (NEG) Urine Ketones (Stick) >=80 mg/dL (NEG) Urine Blood Trace (NEG) Urine Nitrite Negative (NEG) Urine Bilirubin Negative (NEG) Urine Urobilinogen Dipstick 0.2 mg/dL (0.2 mg/dL) Urine Leukocyte Esterase Negative (NEG) Urine RBC 3-5 /HPF (0-2) Urine WBC 1-4 /HPF (0-4) Urine Squamous Epithelial Cells Mod /LPF Urine Amorphous Sediment Present /HPF Urine Bacteria 0 /HPF (0-FEW) Urine Hyaline Casts Moderate /HPF Urine Mucus Marked /LPF Bedside Urine HCG, Qualitative Hcg negative (Negative) White Blood Count 15.1 x10^3/uL (4.0-11.0) Red Blood Count 5.08 x10^6/uL (3.50-5.40) Hemoglobin 15.5 g/dL (12.0-15.5) Hematocrit 45.1 % (36.0-47.0) Mean Corpuscular Volume 89 fL (79-100) Mean Corpuscular Hemoglobin 31 pg (25-35) Mean Corpuscular Hemoglobin Concent 34 g/dL (31-37) Red Cell Distribution Width 14.3 % (11.5-14.5) Platelet Count 454 x10^3/uL (140-400) Neutrophils (%) (Auto) 88 % (31-73) Lymphocytes (%) (Auto) 10 % (24-48) Monocytes (%) (Auto) 2 % (0-9) Eosinophils (%) (Auto) 0 % (0-3) Basophils (%) (Auto) 1 % (0-3) Neutrophils # (Auto) 13.2 x10^3/uL (1.8-7.7) Lymphocytes # (Auto) 1.5 x10^3/uL (1.0-4.8) Monocytes # (Auto) 0.3 x10^3/uL (0.0-1.1) Eosinophils # (Auto) 0.0 x10^3/uL (0.0-0.7) Basophils # (Auto) 0.1 x10^3/uL (0.0-0.2) Segmented Neutrophils % 87 % (35-66) Lymphocytes % 12 % (24-48) Monocytes % 1 % (0-10) Platelet Estimate Increased (ADEQUATE) Sodium Level 141 mmol/L (136-145) Potassium Level 4.1 mmol/L (3.5-5.1) Chloride Level 104 mmol/L (98-107) Carbon Dioxide Level 30 mmol/L (21-32) Anion Gap 7 (6-14) Blood Urea Nitrogen 15 mg/dL (7-20) Creatinine 0.7 mg/dL (0.6-1.0) Estimated GFR (Cockcroft-Gault) 98.9 BUN/Creatinine Ratio 21 (6-20) Glucose Level 181 mg/dL (70-99) Calcium Level 8.4 mg/dL (8.5-10.1) Total Bilirubin 0.3 mg/dL (0.2-1.0) Aspartate Amino Transf (AST/SGOT) 23 U/L (15-37) Alanine Aminotransferase (ALT/SGPT) 31 U/L (14-59) Alkaline Phosphatase 106 U/L (46-116) Total Protein 6.6 g/dL (6.4-8.2) Albumin 3.2 g/dL (3.4-5.0) Albumin/Globulin Ratio 0.9 (1.0-1.7) Lipase 178 U/L (73-393) Serum Test, Qualitative Negative (NEG) VTE Prophylaxis Ordered VTE Prophylaxis Devices: Yes VTE Pharmacological Prophylaxi: Yes Assessment/Plan Assessment/Plan Cannabis Hyperemesis Syndrome Intractable nausea and vomitinfg Dehydration Malnutrition Colitis seen on CT Plan: IV Normal saline Clear liquids as tolerated PPI Consult to GI, hold antibiotics unless patient appears toxic Zofran IV Pain management Recommend hot shower due to suspicion of cannabis hyperemesis syndrome D/C when stable Justifications for Admission Other Justification AILYN HUNG MD Mar 18, 2020 19:55
[2020-03-18] MEDS ORDERED: PANT40TA77 PO (20:10)
[2020-03-18] MEDS ORDERED: ONDANSETRON PF 4 MG/2 ML VIAL. IVP PRN (20:15)
[2020-03-18] MEDS: IV NORMAL SALINE 1000ML BAG 1,000 ML IV SCH (20:24)
[2020-03-18] MEDS ORDERED: MORPHINE SULFATE 4 MG/ML VIAL. IV PRN (20:30)
[2020-03-18] MEDS ORDERED: MORPHINE SULFATE 2 MG/ML VIAL. IV PRN (20:30)
[2020-03-18] MEDS: NICOTINE 14MG PATCH. TD SCH (22:14)
[2020-03-18 23:00] VITALS: BP 120/79
[2020-03-19 03:00] VITALS: BP 120/72
[2020-03-19] MEDS: IV NORMAL SALINE 1000ML BAG 1,000 ML IV SCH (04:21)
[2020-03-19] MEDS: PANTOPRAZOLE IV PUSH 40 MG VIAL. IVP SCH (06:55)
[2020-03-19 07:00] VITALS: BP 138/88
[2020-03-19 07:23] LABS: BASO % 0 % (0-3); EOS # 0.1 x10^3/uL (0.0-0.7); EOS % 1 % (0-3); HEMATOCRIT 39.4 % (36.0-47.0); HEMOGLOBIN 13.3 g/dL (12.0-15.5); LYMPH # 3.4 x10^3/uL (1.0-4.8); LYMPH % 23 % (24-48); MEAN CORPUSCULAR HEMOGLOBIN 30 pg (25-35); MEAN CORPUSCULAR HGB CONC 34 g/dL (31-37); MEAN CORPUSCULAR VOLUME 90 fL (79-100); MONO # 1.3 x10^3/uL (0.0-1.1); MONO % 9 % (0-9); NEUT # 9.9 x10^3/uL (1.8-7.7); NEUT % 68 % (31-73); PLATELET COUNT 353 x10^3/uL (140-400); RED BLOOD COUNT 4.39 x10^6/uL (3.50-5.40); RED CELL DISTRIBUTION WIDTH 14.3 % (11.5-14.5); WHITE BLOOD COUNT 14.7 x10^3/uL (4.0-11.0)
[2020-03-19 07:41] LABS: CALCIUM 8.4 mg/dL (8.5-10.1); CREATININE 0.4 mg/dL (0.6-1.0); GFR 188.7; POTASSIUM 3.2 mmol/L (3.5-5.1)
[2020-03-19] MEDS: NICOTINE 14MG PATCH. TD SCH (09:45)
[2020-03-19 10:44] LABS: BARBITURATES NEG (NEG); BENZODIAZEPINES NEG (NEG); CANNABINOIDS POS (NEG); COCAINE NEG (NEG); METHADONE NEG (NEG); OPIATES POS (NEG); PHENCYCLIDINE NEG (NEG)
[2020-03-19 10:46] LABS: AMPHETAMINE/METHAMPHETAMINE NEG (NEG)
[2020-03-19 11:00] VITALS: BP 140/83
--- NOTE | 2020-03-19 14:17 | DISCH ---
DISCHARGE INSTRUCTIONS Condition on Discharge Condition on Discharge: Stable Activity After Discharge Activity Instructions for Disc: No restrictions Lifting Instructions after Dis: No heavy lifting Weight Bearing Status after Di: As tolerated Diet after Discharge Diet after Discharge: [place], Regular Diet Texture: Regular Contacting the DR. after DC Call your doctor for: Concerns you may have Follow-Up Follow up with: PCP within 1 week of discharge Follow Up With: Gastroenterology if continued to have vomiting Treatment/Equipment after DC Adaptive Equipment Issued: None PAULINA LYNCH MD Mar 19, 2020 14:17
[2020-03-19 15:00] VITALS: BP 137/89
--- NOTE | 2020-03-19 15:09 | PDOC3 ---
[facility]-Discharge Summary Date of Admission: Date of Admission: Mar 18, 2020 Date of Discharge: Date of Discharge: Mar 19, 2020 Admission Diagnosis: Admitting Diagnosis: Cannabis Hyperemesis Syndrome Intractable nausea and vomitinfg Dehydration Malnutrition Colitis seen on CT Discharge Diagnosis: Discharge Diagnosis: Cannabis Hyperemesis Syndrome Intractable nausea and vomiting Dehydration Malnutrition Colitis seen on CT Consults: Consults: Gastroenterology Hospital Course: Hospital Course: 29 yo female who presents with complaint of diffuse abdominal pain, associated vomiting, and diarrhea for 1 day. She reports abdominal pain 8/10, greather than 10 episodes of non-bloody vomiting, and 2 episodes of non-bloody diarrhea. She has a history of similar symptoms that have been recurrent over the past 5 years. She is followed by GI, without any specific diagnosis to date. She admits to regular marijuana use. She denies any fever, chills, cough, or sore throat. Patient was admitted for further care. Patient vomiting improved after she took hot shower. Patient was tolerating clear liquid diet for lunch and she also tolerated a normal diet afterwards. Patient's vomiting improved. Extensive counseling was held with the patient in order to encourage decrease of her CBD use. Patient understood and is motivated to decrease her CBD use for her anxiety. The rest of her hospital course was uneventful Disposition: Disposition/Orders: D/C to Home Activity: Activity: Resume previous activity Diet: Diet: Regular Medications: Home Meds Reported Medications Pantoprazole Sodium (PANTOPRAZOLE SODIUM ) 40 Mg Tablet.dr, 40 MG PO DAILYAC for GERD, TAB 03/18/20 Alprazolam (ALPRAZOLAM) 0.5 Mg Tablet, 0.5 MG PO PRN Q6HRS PRN for ANXIETY / AGITATION, TAB 0 Refills 08/23/15 Scheduled Pantoprazole Sodium (Pantoprazole Sodium ), 40 MG PO DAILYAC, (Reported) Scheduled PRN Alprazolam (Alprazolam), 0.5 MG PO PRN Q6HRS PRN for ANXIETY / AGITATION, (Reported) Total Time: Total Time: Total time spent was 35 minutes in preparing scripts, discharge planning with SWI and RN and preparing this discharge summary Justicifation of Admission Dx: Justifications for Admission: Justification of Admission Dx: Yes PAULINA LYNCH MD Mar 19, 2020 15:09
--- NOTE | 2020-03-19 16:02 | NUR ---
Discharge Note: TIMMY GARZA Discharge instructions and discharge home medications reviewed with Patient and a copy given. All questions have been answered and understanding verbalized. The following instructions and handouts were given: discharge instructions, education and follow up recommendations. Discontinued lines and drains: Peripheral IV discontinued intact. Patient discharged to Home or Self Care with Family Member via Wheelchair off unit by [facility].
== END 2020-03-19 16:03 | disposition home or self-care (01) ==
LOC: ER 11:13 → ED HOLD 14:32 → 5 NORTH 16:16
PROVIDERS: ADMIT Family Medicine; ATTEND Family Medicine
DX: R10.84 Generalized abdominal pain (principal); E86.0 Dehydration; R11.2 Nausea with vomiting, unspecified; F12.10 Cannabis abuse, uncomplicated; E46 Unspecified protein-calorie malnutrition; K52.9 Noninfective gastroenteritis and colitis, unspecified; E78.5 Hyperlipidemia, unspecified; F31.9 Bipolar disorder, unspecified; F41.9 Anxiety disorder, unspecified; I10 Essential (primary) hypertension; F17.210 Nicotine dependence, cigarettes, uncomplicated; E11.43 Type 2 diabetes mellitus with diabetic autonomic (poly)neuropathy; K31.84 Gastroparesis; Z90.49 Acquired absence of other specified parts of digestive tract
CPT/HCPCS: 36415; 74177; 80048; 80053; 80307; 81001; 81025; 83690; 84703; 85007; 85025; 96361; 96365; 96366; 96375; 96376; 99284; C9113; G0378; J1170; J1630; J2270; J2405; J2543; J2765; J7030; Q9967; G0379

== ENCOUNTER 2021-04-20 08:37 | Emergency (ER) | payer BC ==
[~2021-04-20] VITALS: Ht 165.1 cm; Wt 90.9 kg
[~2021-04-20 08:37] MED LIST changes: +PANT40TA77 PO
--- NOTE | 2021-04-20 08:53 | ED.ADGEN ---
Past Medical History Past Medical History: Anxiety, Bipolar, Depression Additional Past Medical Histor: GASTROPARESIS Past Surgical History: Cholecystectomy Additional Past Surgical Histo: EYE SX Smoking Status: Current Every Day Smoker Alcohol Use: None Drug Use: Marijuana General Adult HPI: HPI: Patient is a 30-year-old female who arrives ambulatory to the emergency department complaining of nausea and vomiting since 1900 hrs. yesterday. Patient reports she has had multiple episodes of nausea and vomiting and reports to diffuse abdominal pain. Patient reports that she does have history of peptic ulcer disease. Patient also states that she did have diarrhea however that is since resolved. Patient states now she just has ongoing abdominal pain which she describes as coming in waves. Despite this, she denies any history of fevers, dysuria or illness otherwise. Additionally she states that she is not sexually active and has an IUD in place. She is awake, alert and uncomfortable appearing Review of Systems: Review of Systems: Constitutional: Denies fever or chills. [] Eyes: Denies change in visual acuity. [] HENT: Denies nasal congestion or sore throat. [] Respiratory: Denies cough or shortness of breath. [] Cardiovascular: Denies chest pain or edema. [] GI: Denies abdominal pain, nausea, vomiting, bloody stools or diarrhea. [] : Denies dysuria. [] Musculoskeletal: Denies back pain or joint pain. [] Integument: Denies rash. [] Neurologic: Denies headache, focal weakness or sensory changes. [] Endocrine: Denies polyuria or polydipsia. [] Lymphatic: Denies swollen glands. [] Psychiatric: Denies depression or anxiety. [] Current Medications: Current Medications Medications (Trade) Dose Ordered Sig/Oumar Start Time Stop Time Status Last Admin Dose Admin Iohexol (Omnipaque 300 Mg/ml) 75 ml 1X ONCE 04/20/21 10:15 04/20/21 10:16 DC 04/20/21 10:23 75 ML Morphine Sulfate (Morphine Sulfate) 4 mg PRN Q15MIN PRN 04/20/21 09:00 04/21/21 08:59 04/20/21 11:00 4 MG Ondansetron HCl (Zofran) 4 mg 1X ONCE 04/20/21 11:00 04/20/21 11:01 DC 04/20/21 11:01 4 MG Allergies: Allergies: Allergies Coded Allergies Type Severity Reaction Last Updated Verified No Known Drug Allergies 08/18/15 No Physical Exam: PE: Constitutional: Uncomfortable appearing. Well developed, well nourished, non- toxic appearance. [] HENT: Normocephalic, atraumatic, bilateral external ears normal, oropharynx moist, no oral exudates, nose normal. [] Eyes: PERRLA, EOMI, conjunctiva normal, no discharge. [] Neck: Normal range of motion, no tenderness, supple, no stridor. [] Cardiovascular:Heart rate regular rhythm, no murmur [] Lungs & Thorax: Bilateral breath sounds clear to auscultation [] Abdomen: Diffuse tenderness without guarding or rebound. Bowel sounds normal, soft, no masses, no pulsatile masses. [] Skin: Warm, dry, no erythema, no rash. [] Back: No tenderness, no CVA tenderness. [] Extremities: No tenderness, no cyanosis, no clubbing, ROM intact, no edema. [] Neurologic: Alert and oriented X 3, normal motor function, normal sensory function, no focal deficits noted. [] Psychologic: Affect normal, judgement normal, mood normal. [] Current Patient Data: Labs: Laboratory Tests Test 04/20/21 09:05 04/20/21 10:50 04/20/21 10:54 White Blood Count 26.7 x10^3/uL (4.0-11.0) H Red Blood Count 4.99 x10^6/uL (3.50-5.40) Hemoglobin 15.3 g/dL (12.0-15.5) Hematocrit 43.9 % (36.0-47.0) Mean Corpuscular Volume 88 fL (79-100) Mean Corpuscular Hemoglobin 31 pg (25-35) Mean Corpuscular Hemoglobin Concent 35 g/dL (31-37) Red Cell Distribution Width 13.6 % (11.5-14.5) Platelet Count 510 x10^3/uL (140-400) H Neutrophils (%) (Auto) 85 % (31-73) H Lymphocytes (%) (Auto) 7 % (24-48) L Monocytes (%) (Auto) 7 % (0-9) Eosinophils (%) (Auto) 0 % (0-3) Basophils (%) (Auto) 0 % (0-3) Neutrophils # (Auto) 22.8 x10^3/uL (1.8-7.7) H Lymphocytes # (Auto) 1.9 x10^3/uL (1.0-4.8) Monocytes # (Auto) 1.8 x10^3/uL (0.0-1.1) H Eosinophils # (Auto) 0.0 x10^3/uL (0.0-0.7) Basophils # (Auto) 0.1 x10^3/uL (0.0-0.2) Segmented Neutrophils % 80 % (35-66) H Lymphocytes % 13 % (24-48) L Monocytes % 7 % (0-10) Platelet Estimate Increased (ADEQUATE) Sodium Level 137 mmol/L (136-145) Potassium Level 3.5 mmol/L (3.5-5.1) Chloride Level 96 mmol/L (98-107) L Carbon Dioxide Level 26 mmol/L (21-32) Anion Gap 15 (6-14) H Blood Urea Nitrogen 14 mg/dL (7-20) Creatinine 0.7 mg/dL (0.6-1.0) Estimated GFR (Cockcroft-Gault) 98.3 BUN/Creatinine Ratio 20 (6-20) Glucose Level 134 mg/dL (70-99) H Calcium Level 10.0 mg/dL (8.5-10.1) Total Bilirubin 0.9 mg/dL (0.2-1.0) Aspartate Amino Transferase (AST) 23 U/L (15-37) Alanine Aminotransferase (ALT) 45 U/L (14-59) Alkaline Phosphatase 101 U/L (46-116) Total Protein 8.1 g/dL (6.4-8.2) Albumin 4.6 g/dL (3.4-5.0) Albumin/Globulin Ratio 1.3 (1.0-1.7) Lipase 52 U/L (73-393) L Urine Collection Type Unknown Urine Color Yellow Urine Clarity Clear Urine pH 6.5 (<5.0-8.0) Urine Specific [employer] >=1.030 (1.000-1.030) Urine Protein 30 mg/dL (NEG-TRACE) Urine Glucose (UA) Negative mg/dL (NEG) Urine Ketones (Stick) 15 mg/dL (NEG) Urine Blood Trace (NEG) Urine Nitrite Negative (NEG) Urine Bilirubin Negative (NEG) Urine Urobilinogen Dipstick 1.0 mg/dL (0.2 mg/dL) Urine Leukocyte Esterase Negative (NEG) Urine RBC Rare /HPF (0-2) Urine WBC 1-4 /HPF (0-4) Urine Squamous Epithelial Cells Mod /LPF Urine Bacteria Few /HPF (0-FEW) Urine Hyaline Casts Few /HPF Urine Mucus Slight /LPF POC Urine HCG, Qualitative Hcg negative (Negative) Laboratory Tests 04/20/21 09:05 Laboratory Tests 04/20/21 09:05 Vital Signs: Vital Signs Date Time Temp Pulse Resp B/P (MAP) Pulse Ox O2 Delivery O2 Flow Rate FiO2 04/20/21 11:00 16 98 Room Air 04/20/21 09:18 60 134/78 (96) 04/20/21 08:53 98.2 98.2 EKG: EKG: [] Heart Score: C/O Chest Pain: No Risk Factors: Risk Factors: DM, Current or recent (<one month) smoker, HTN, HLP, family history of CAD, obesity. Risk Scores: Score 0 - 3: 2.5% MACE over next 6 weeks - Discharge Home Score 4 - 6: 20.3% MACE over next 6 weeks - Admit for Clinical Observation Score 7 - 10: 72.7% MACE over next 6 weeks - Early Invasive Strategies Radiology/Procedures: Radiology/Procedures: [] Impression: [facility] [address] [place], [place] [id number] IMAGING REPORT Signed PATIENT: TIMMY GARZA ACCOUNT: [id number] : 1990 LOCATION: ER AGE: 30 SEX: F EXAM STATUS: REG ER ORD. PHYSICIAN: DARRYL JEWELL DO REASON: Vomiting and abdominal pain PROCEDURE: CT ABD PELV W/ IV CONTRST ONLY INDICATION: Reason: Vomiting and abdominal pain / Spl. Instructions: OMNI 300 INJ.75 / History: COMPARISON: March 18, 2020 TECHNIQUE: Axial CT images were obtained through the abdomen and pelvis with intravenous contrast. One or more of the following individualized dose reduction techniques were utilized for this examination: 1. Automated exposure control; 2. Adjustment of the mA and/or kV according to patient size; 3. Use of iterative reconstruction technique. FINDINGS: Vascular: No abdominal aortic aneurysm. Hepatobiliary: Postcholecystectomy. Mild prominence of intrahepatic bile ducts which is commonly seen postoperatively Pancreas: No peripancreatic edema. Spleen: Spleen unremarkable. Renal: No hydronephrosis. Bladder: No definite inflammatory changes to the bladder. Gastrointestinal: No bowel dilation to suggest obstruction. No periappendiceal inflammatory changes. Small fat-containing umbilical hernia. Device is seen within the lower uterine segment with the tip located near the cervix. This has migrated when compared to prior examination. IMPRESSION: * No evidence of bowel obstruction or appendicitis. * Intrauterine device is again seen however migrated into the lower uterine segment with the tip located near the cervix. The patient has an anteflexed ut erus and the intrauterine device was previously at the anteflexed portion with the T aspect of the fundus. Electronically signed by: Daljit Yan MD (04/20/2021 11:04 AM) DESKTOP- [id number] DICTATED and SIGNED BY: DALJIT YAN MD DATE: 04/20/21 [id number] 0 Course & Med Decision Making: Course & Med Decision Making Pertinent Labs and Imaging studies reviewed. (See chart for details) The patient remains awake, alert and in no acute distress. Patient does report that she has continued abdominal pain however it has improved. I have offered the patient admission to the hospital to treat her ongoing vomiting as well as pain she is politely declined stating she would like to try outpatient treatment. I encouraged her to return should she develop any new fevers, intractable vomiting or resumption of her diarrhea. The patient understands and has agreed to do so. She is nontoxic-appearing and stable for discharge. Dragon Disclaimer: Dragon Disclaimer: This electronic medical record was generated, in whole or in part, using a voice recognition dictation system. Departure Departure Impression: Primary Impression: Nausea and vomiting Additional Impressions: Abdominal pain Leukocytosis Disposition: 01 HOME / SELF CARE / HOMELESS Condition: STABLE Referrals: CHRISTY JOVEL (PCP) Patient Instructions: Abdominal Pain, Nausea and Vomiting Scripts Tramadol Hcl (ULTRAM) 50 Mg Tablet 50 MG PO Q6HRS PRN for PAIN for 3 Days, #12 TAB 0 Refills Prov: DARRYL JEWELL DO 04/20/21 Dicyclomine Hcl (DICYCLOMINE HCL) 10 Mg Capsule 10 MG PO QID for 3 Days, #12 CAP Prov: DARRYL JEWELL DO 04/20/21 Ondansetron Hcl (ZOFRAN) 4 Mg Tablet 1 TAB PO PRN Q6-8HRS for nausea, #12 TAB Prov: DARRYL JEWELL DO 04/20/21 Problem Qualifiers DARRYL JEWELL DO Apr 20, 2021 08:53
[2021-04-20] MEDS ORDERED: ONDANSETRON PF 4 MG/2 ML VIAL. IVP ONE ×2 (09:00→11:00)
[2021-04-20] MEDS: MORPHINE SULFATE 4 MG/ML INJ. IV/SQ PRN ×2 (09:13→11:00)
[2021-04-20 09:18] VITALS: BP 134/78
[2021-04-20 09:19] LABS: BASO # 0.1 x10^3/uL (0.0-0.2); BASO % 0 % (0-3); EOS % 0 % (0-3); HEMATOCRIT 43.9 % (36.0-47.0); HEMOGLOBIN 15.3 g/dL (12.0-15.5); LYMPH # 1.9 x10^3/uL (1.0-4.8); LYMPH % 7 % (24-48); MEAN CORPUSCULAR HEMOGLOBIN 31 pg (25-35); MEAN CORPUSCULAR HGB CONC 35 g/dL (31-37); MEAN CORPUSCULAR VOLUME 88 fL (79-100); MONO # 1.8 x10^3/uL (0.0-1.1); MONO % 7 % (0-9); NEUT # 22.8 x10^3/uL (1.8-7.7); NEUT % 85 % (31-73); PLATELET COUNT 510 x10^3/uL (140-400); RED BLOOD COUNT 4.99 x10^6/uL (3.50-5.40); RED CELL DISTRIBUTION WIDTH 13.6 % (11.5-14.5); WHITE BLOOD COUNT 26.7 x10^3/uL (4.0-11.0)
[2021-04-20 09:29] LABS: CREATININE 0.7 mg/dL (0.6-1.0); GFR 98.3; POTASSIUM 3.5 mmol/L (3.5-5.1)
[2021-04-20 09:35] LABS: ALBUMIN 4.6 g/dL (3.4-5.0); ALBUMIN/GLOBULIN RATIO 1.3 (1.0-1.7); TOTAL BILIRUBIN 0.9 mg/dL (0.2-1.0); TOTAL PROTEIN 8.1 g/dL (6.4-8.2)
[2021-04-20] MEDS ORDERED: IOHEXOL 300 MG/ML 100ML VIAL. IV ONE (10:15)
[2021-04-20 11:00] LABS: % LYMPHS 13 % (24-48); % MONOS 7 % (0-10); % SEGS 80 % (35-66)
[2021-04-20 11:01] LABS: PLT ESTIMATE INCREASED (ADEQUATE)
--- NOTE | 2021-04-20 11:06 | RAD ---
INDICATION: Reason: Vomiting and abdominal pain / Spl. Instructions: OMNI 300 INJ.75 / History: COMPARISON: March 18, 2020 TECHNIQUE: Axial CT images were obtained through the abdomen and pelvis with intravenous contrast. One or more of the following individualized dose reduction techniques were utilized for this examinat ion: 1. Automated exposure control; 2. Adjustment of the mA and/or kV according to patient size; 3 . Use of iterative reconstruction technique. FINDINGS: Vascular: No abdominal aortic aneurysm. Hepatobiliary: Postcholecystectomy. Mild prominence of intrahepatic bile ducts which is commonly seen postoperatively Pancreas: No peripancreatic edema. Spleen: Spleen unremarkable. Renal: No hydronephrosis. Bladder: No definite inflammatory changes to the bladder. Gastrointestinal: No bowel dilation to suggest obstruction. No periappendiceal inflammatory changes. Small fat-containing umbilical hernia. Device is seen within the lower uterine segment with the tip located near the cervix. This has migrat ed when compared to prior examination. IMPRESSION: * No evidence of bowel obstruction or appendicitis. * Intrauterine device is again seen however migrated into the lower uterine segment with the tip loc ated near the cervix. The patient has an anteflexed uterus and the intrauterine device was previously at the anteflexed portion with the T aspect of the fundus. Electronically signed by: Pacheco Givens MD (04/20/2021 11:04 AM) [id number]
[2021-04-20 11:12] LABS: BILIRUBIN,URINE NEGATIVE (NEG); CLARITY,URINE CLEAR; COLOR,URINE YELLOW; NITRITE,URINE NEGATIVE (NEG); PH,URINE 6.5 (<5.0-8.0); PROTEIN,URINE 30 mg/dL (NEG-TRACE)
[2021-04-20] MEDS ORDERED: TRAM-48 PO (11:17)
[2021-04-20] MEDS ORDERED: DICY10CA3 PO (11:17)
[2021-04-20] MEDS ORDERED: ONDA4TAB7 PO (11:17)
[2021-04-20 11:28] LABS: RBC,URINE RARE /HPF (0-2)
[2021-04-20 11:29] LABS: BACTERIA,URINE FEW /HPF (0-FEW); HYALINE CASTS, URINE FEW /HPF
== END 2021-04-20 11:48 | disposition home or self-care (01) ==
LOC: ER 08:37
DX: D72.829 Elevated white blood cell count, unspecified (principal); R11.2 Nausea with vomiting, unspecified; R19.7 Diarrhea, unspecified; R10.84 Generalized abdominal pain; F41.9 Anxiety disorder, unspecified; F32.9 Major depressive disorder, single episode, unspecified; F17.200 Nicotine dependence, unspecified, uncomplicated; Z90.49 Acquired absence of other specified parts of digestive tract
CPT/HCPCS: 36415; 74177; 80053; 81001; 81025; 83690; 85007; 85025; 96374; 96375; 96376; 99285; J2270; J2405; Q9967

== ENCOUNTER 2021-04-25 12:12 | Emergency (ER) | payer BC ==
[~2021-04-25] VITALS: Ht 165.1 cm; Wt 90.9 kg
[~2021-04-25 12:12] MED LIST changes: +DICY10CA3 PO; +ONDA4TAB7 PO; +TRAM-48 PO
[2021-04-25] MEDS ORDERED: IV NORMAL SALINE 1000ML BAG 1,000 ML IV SCH (12:30)
[2021-04-25] MEDS ORDERED: ONDANSETRON PF 4 MG/2 ML VIAL. IVP ONE (12:30)
[2021-04-25] MEDS ORDERED: IOHEXOL 350 MG/ML 100 ML VIAL. IV ONE (12:30)
[2021-04-25] MEDS ORDERED: FAMOTIDINE 20 MG/2 ML VIAL IVP ONE (12:30)
[2021-04-25 12:35] LABS: BILIRUBIN,URINE NEGATIVE (NEG); CLARITY,URINE CLEAR; COLOR,URINE YELLOW; NITRITE,URINE NEGATIVE (NEG); PROTEIN,URINE NEGATIVE (NEG-TRACE); UROBILINOGEN,URINE 0.2 mg/dL (0.2 mg/dL)
--- NOTE | 2021-04-25 12:38 | PHYS DOC ---
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 She was sent home with Bentyl, tramadol. She is back today stated that last night she started with abdominal pain and nausea and vomiting states she cannot keep anything down. She denies any current diarrhea. She denies smoking any marijuana. She denies fever, chest pain, shortness of air, cough, dizziness, headache, urinary symptoms, back pain, focal weakness or numbness and tingling. She has a history of hyperemesis with marijuana use, gastroparesis, hepatomegaly, colitis, UTI, trichomonas, anxiety, bipolar, depression, cholecystectomy. She is currently rating her pain an 8 out of 10 and states it is a sharp type pain. [facility]ER[facility] ENGINEER) Review of Systems: Review of Systems: Constitutional: Denies fever or chills. [] Eyes: Denies change in visual acuity. [] HENT: Denies nasal congestion or sore throat. [] Respiratory: Denies cough or shortness of breath. [] Cardiovascular: Denies chest pain or edema. [] GI: +abdominal pain,+nausea, +vomiting, denies bloody stools or diarrhea. [] : Denies dysuria. [] Musculoskeletal: Denies back pain or joint pain. [] Integument: Denies rash. [] Neurologic: Denies headache, focal weakness or sensory changes. [] Endocrine: Denies polyuria or polydipsia. [] Lymphatic: Denies swollen glands. [] Psychiatric: Denies depression or anxiety. [] (ROM PATEL [employer]EWABLE ENERGY ENGINEER) Heart Score: C/O Chest Pain: No Risk Factors: Risk Factors: DM, Current or recent (<one month) smoker, HTN, HLP, family history of CAD, obesity. Risk Scores: Score 0 - 3: 2.5% MACE over next 6 weeks - Discharge Home Score 4 - 6: 20.3% MACE over next 6 weeks - Admit for Clinical Observation Score 7 - 10: 72.7% MACE over next 6 weeks - Early Invasive Strategies (ROM PATEL APRN) Current Medications: Current Medications Medications (Trade) Dose Ordered Sig/Oumar Start Time Stop Time Status Last Admin Dose Admin Famotidine (Pepcid Vial) 20 mg 1X ONCE 04/25/21 12:30 04/25/21 12:31 Ondansetron HCl (Zofran) 4 mg 1X ONCE 04/25/21 12:30 04/25/21 12:31 Sodium Chloride 1,000 ml @ 1,000 mls/hr Q1H 04/25/21 12:30 04/25/21 13:29 (ROM PATEL APRN) Allergies: Allergies: Allergies Coded Allergies Type Severity Reaction Last Updated Verified No Known Drug Allergies 08/18/15 No (ROM PATEL APRN) Physical Exam: PE: Constitutional: Well developed, well nourished, no acute distress, non-toxic appearance. [] HENT: Normocephalic, atraumatic, bilateral external ears normal, oropharynx moist, no oral exudates, nose normal. [] Eyes: PERRLA, EOMI, conjunctiva normal, no discharge. [] Neck: Normal range of motion, no tenderness, supple, no stridor. [] Cardiovascular:Heart rate regular rhythm, no murmur [] Lungs & Thorax: Bilateral breath sounds clear to auscultation [] Abdomen: Bowel sounds normal, soft, generalized tenderness, no masses, no pulsatile masses. No rebound tenderness and no guarding. [] Skin: Warm, dry, no erythema, no rash. [] Back: No tenderness, no CVA tenderness. [] Extremities: No tenderness, no cyanosis, no clubbing, ROM intact, no edema. [] Neurologic: Alert and oriented X 3, normal motor function, normal sensory function, no focal deficits noted. [] Psychologic: Affect normal, judgement normal, mood normal. [] (ROM PATEL APRN) EKG: EKG: [] (ROM PATEL APRN) Radiology/Procedures: Radiology/Procedures: [] Impression: [facility] [address] [place] [address] IMAGING REPORT Signed PATIENT: TIMMY GARZA ACCOUNT: [id number] : 1990 LOCATION: ER AGE: 30 SEX: F EXAM STATUS: REG ER ORD. PHYSICIAN: ROM PATEL APRN REASON: vomiting PROCEDURE: PORTABLE CHEST 1V Single view of the chest. 04/25/2021 12:20 PM Indication: Reason: vomiting / Comparison: None Findings: There is no focal consolidation. There is no pleural effusion or p neumothorax. The cardiomediastinal silhouette and pulmonary vasculature are within normal limits. No acute osseous abnormalities are seen. Impression: No evidence of acute cardiopulmonary process. Electronically signed by: Enrique Perez MD (04/25/2021 12:42 PM) [id number] DICTATED and SIGNED BY: ENRIQUE PEREZ MD DATE: 04/25/21 [id number] [facility] [address] [place] [address] IMAGING REPORT Signed PATIENT: TIMMY GARZA ACCOUNT: [id number] : 1990 LOCATION: ER AGE: 30 SEX: F EXAM STATUS: REG ER ORD. PHYSICIAN: ROM PATLE APRN REASON: vomiting, abdominal pain PROCEDURE: CT ABD PELV W/ IV CONTRST ONLY EXAMINATION: CT abdomen and pelvis with IV contrast. INDICATION:30 years, Female, abdomen pain, vomiting. TECHNIQUE: Axial CT images of the abdomen and pelvis were obtained. Coronal and sagittal reformatted performed. COMPARISON: 04/20/2021. Exposure: One or more of the following individualized dose reduction techniques were utilized for this examination: 1. Automated exposure control 2. Adjustment of the mA and/or kV according to patient size 3. Use of iterative reconstruction technique. FINDINGS: LOWER CHEST: Subsegmental atelectasis in the right middle lobe and lingula. ABDOMEN/PELVIS: Normal size and morphology of the liver with homogeneous enhancement. No suspicious focal hepatic lesion. Cholecystectomy. No biliary ductal dilation. Spleen and pancreas are unremarkable. No adrenal nodule. No hydronephrosis or nephrolithiasis in either kidney. No bowel obstruction or wall thickening. Normal appendix. Normal caliber abdominal aorta. Mesenteric arteries and portal vein are patent. No lymphadenopathy in the abdomen or pelvis by size criteria. No pneumoperitoneum or ascites. Underdistended urinary bladder which limits evaluation. Anteverted uterus. Low-lying IUD seen within the cervical canal, similar to prior exam. No suspicious pelvic masses. MUSCULOSKELETAL: No acute osseous process or suspicious lesion. Similar small fat-containing umbilical hernia. IMPRESSION: 1. No acute abnormality in the abdomen or pelvis. 2. Similar low-lying IUD seen within the cervical canal. Electronically signed by: Marshall Neff MD (04/25/2021 2:33 PM) [id number] DICTATED and SIGNED BY: MARSHALL NEFF MD DATE: 04/25/21 [id number] 0 (ROM PATEL APRN) Course & Med Decision Making: Course & Med Decision Making Pertinent Labs and Imaging studies reviewed. (See chart for details) See HPI. Alert and oriented x4. Ambulatory steady gait. Speaks in full clear sentences. Abdomen is soft but generalized tenderness. No rebound tenderness or guarding. Skin pink warm and dry. Cap refill less than 2 seconds. Work unremarkable. She is gotten 2 L of normal saline. She is gotten Zofran and Pepcid. Patient to be p.o. challenged. Chest x-ray shows no acute findings. CT abdomen pelvis shows no acute findings. Patient tolerated fluid intake in the ED. Patient is stable and is discharged home. She can follow-up with her GI physician. [] (ROM PATEL APRN) Dragon Disclaimer: Dragon Disclaimer: This electronic medical record was generated, in whole or in part, using a voice recognition dictation system. (ROM PATEL APRN) Departure Departure Impression: Primary Impression: Nausea and vomiting Qualified Codes: R11.2 - Nausea with vomiting, unspecified Additional Impression: Cannabis abuse Disposition: HOME / SELF CARE / HOMELESS Condition: STABLE Referrals: DYLON AMARO (PCP) Patient Instructions: Marijuana Abuse-Brief, Nausea and Vomiting Additional Instructions: Follow-up with your GI doctor. Try not smoking marijuana as this does cause some nausea and vomiting and some abdominal pain. Drink plenty of fluid. If you cannot keep down any fluids return emergency room. Scripts Ondansetron (ONDANSETRON ODT) 4 Mg Tab.rapdis 1 TAB PO PRN Q6-8HRS, #16 TAB Prov: ROM PATEL APRN 04/25/21 Attending Signature I have participated in the care of this patient and I have reviewed and agree with all pertinent clinical information above including history, exam, and recommendations. (DARRYL JEWELL DO) ROM PATEL APRN Apr 25, 2021 12:38 DARRYL JEWELL DO Apr 25, 2021 16:57
[2021-04-25 12:43] LABS: BARBITURATES NEG (NEG); BENZODIAZEPINES NEG (NEG); CANNABINOIDS POS (NEG); COCAINE NEG (NEG); METHADONE NEG (NEG); OPIATES NEG (NEG); PHENCYCLIDINE NEG (NEG)
[2021-04-25 12:44] LABS: AMPHETAMINE/METHAMPHETAMINE NEG (NEG)
[2021-04-25] MEDS ORDERED: CONTRAST GIVEN. MC PRN (12:45)
--- NOTE | 2021-04-25 12:45 | RAD ---
Single view of the chest. 04/25/2021 12:20 PM Indication: Reason: vomiting / Comparison: None Findings: There is no focal consolidation. There is no pleural effusion or pneumothorax. The cardiome diastinal silhouette and pulmonary vasculature are within normal limits. No acute osseous abnormaliti es are seen. Impression: No evidence of acute cardiopulmonary process. Electronically signed by: Enrique Camp MD (04/25/2021 12:42 PM) [id number]
[2021-04-25 12:46] LABS: BACTERIA,URINE 0 /HPF (0-FEW); RBC,URINE OCC /HPF (0-2); WBC,URINE 0 /HPF (0-4)
[2021-04-25] MEDS ORDERED: IV NORMAL SALINE 1000ML BAG 1,000 ML IV ONE (13:00)
[2021-04-25 13:16] LABS: INFLUENZA A PATIENT NEGATIVE (NEGATIVE); INFLUENZA B PATIENT NEGATIVE (NEGATIVE)
[2021-04-25] MEDS ORDERED: IOHEXOL 300 MG/ML 100ML VIAL. IV ONE (13:30)
[2021-04-25 13:43] LABS: CALCIUM 8.8 mg/dL (8.5-10.1); CREATININE 0.6 mg/dL (0.6-1.0); GFR 117.4; POTASSIUM 3.7 mmol/L (3.5-5.1)
[2021-04-25 13:49] LABS: ALBUMIN/GLOBULIN RATIO 1.1 (1.0-1.7); TOTAL BILIRUBIN 0.6 mg/dL (0.2-1.0); TOTAL PROTEIN 7.5 g/dL (6.4-8.2)
[2021-04-25 14:07] LABS: BASO # 0.1 x10^3/uL (0.0-0.2); BASO % 1 % (0-3); EOS # 0.1 x10^3/uL (0.0-0.7); EOS % 1 % (0-3); HEMATOCRIT 39.9 % (36.0-47.0); HEMOGLOBIN 13.8 g/dL (12.0-15.5); LYMPH # 1.2 x10^3/uL (1.0-4.8); LYMPH % 13 % (24-48); MEAN CORPUSCULAR HEMOGLOBIN 31 pg (25-35); MEAN CORPUSCULAR HGB CONC 35 g/dL (31-37); MEAN CORPUSCULAR VOLUME 89 fL (79-100); MONO # 0.5 x10^3/uL (0.0-1.1); MONO % 5 % (0-9); NEUT # 8.1 x10^3/uL (1.8-7.7); NEUT % 81 % (31-73); PLATELET COUNT 392 x10^3/uL (140-400); RED BLOOD COUNT 4.47 x10^6/uL (3.50-5.40); RED CELL DISTRIBUTION WIDTH 13.5 % (11.5-14.5); WHITE BLOOD COUNT 9.9 x10^3/uL (4.0-11.0)
--- NOTE | 2021-04-25 14:35 | RAD ---
EXAMINATION: CT abdomen and pelvis with IV contrast. INDICATION:30 years, Female, abdomen pain, vomiting. TECHNIQUE: Axial CT images of the abdomen and pelvis were obtained. Coronal and sagittal reformatted performed. COMPARISON: 04/20/2021. Exposure: One or more of the following individualized dose reduction techniques were utilized for thi s examination: 1. Automated exposure control 2. Adjustment of the mA and/or kV according to patient size 3. Use of iterative reconstruction technique. FINDINGS: LOWER CHEST: Subsegmental atelectasis in the right middle lobe and lingula. ABDOMEN/PELVIS: Normal size and morphology of the liver with homogeneous enhancement. No suspicious focal hepatic les ion. Cholecystectomy. No biliary ductal dilation. Spleen and pancreas are unremarkable. No adrenal no dule. No hydronephrosis or nephrolithiasis in either kidney. No bowel obstruction or wall thickening. Normal appendix. Normal caliber abdominal aorta. Mesenteric arteries and portal vein are patent. No lymphadenopathy in the abdomen or pelvis by size criteria. No pneumoperitoneum or ascites. Underdiste nded urinary bladder which limits evaluation. Anteverted uterus. Low-lying IUD seen within the cervic al canal, similar to prior exam. No suspicious pelvic masses. MUSCULOSKELETAL: No acute osseous process or suspicious lesion. Similar small fat-containing umbilical hernia. IMPRESSION: 1. No acute abnormality in the abdomen or pelvis. 2. Similar low-lying IUD seen within the cervical canal. Electronically signed by: Hung Neff MD (04/25/2021 2:33 PM) [id number]
[2021-04-25] MEDS ORDERED: ONDA4TAB12 PO (16:16)
[2021-04-25 16:25] VITALS: BP 157/81
--- NOTE | 2021-04-28 18:47 | NUR ---
IP: Informed pt of negative covid test. Pt verbalized understanding.
== END 2021-04-25 16:28 | disposition home or self-care (01) ==
LOC: ER 12:12
DX: R11.2 Nausea with vomiting, unspecified (principal); Z20.822 Contact with and (suspected) exposure to COVID-19; F12.10 Cannabis abuse, uncomplicated; R10.84 Generalized abdominal pain; F31.9 Bipolar disorder, unspecified; D41.9 Neoplasm of uncertain behavior of unspecified urinary organ; Z90.49 Acquired absence of other specified parts of digestive tract
CPT/HCPCS: 36415; 71045; 74177; 80053; 80307; 81001; 81025; 83690; 83735; 85025; 87426; 87804; 96361; 96374; 96375; 99285; J2405; J3490; J7030; Q9967; U0003; U0005

== ENCOUNTER 2021-05-15 10:54 | Emergency (ER) | payer BC ==
[~2021-05-15] VITALS: Ht 165.1 cm; Wt 95.2 kg
[~2021-05-15 10:54] MED LIST changes: +ONDA4TAB12 PO
--- NOTE | 2021-05-15 12:45 | PHYS DOC ---
Past Medical History Past Medical History: Anxiety, Bipolar, Depression Additional Past Medical Histor: peptic ulcers Past Surgical History: Cholecystectomy Additional Past Surgical Histo: EYE SX Smoking Status: Current Every Day Smoker Alcohol Use: None Drug Use: Marijuana General Adult EDM: Chief Complaint: NAUSEA/VOMITING/DIARRHEA HPI: HPI: Patient is a 30 year old female who presents with epigastric abdominal discomfort as well as nausea and vomiting/retching. She reports that she has had the same symptoms off and on for over 6 years. She has seen her primary care physician as well as GI multiple times. She reports that she has been d iagnosed with peptic ulcer disease and gastritis. She reports compliance with omeprazole 40 mg twice daily. She reports that she does smoke marijuana, though she has not reportedly used marijuana in a week. She reports 2 episodes of diarrhea. She denies miesha hematemesis, denies coffee-ground emesis, denies melena or hematochezia. She denies fevers or chills. Denies chest pain or shortness of breath. Denies urinary symptoms. She reports that she took Zofran at home with little relief. She indicates that the symptoms occur quite frequently. Review of Systems: Review of Systems: Constitutional: Denies fever or chills. [] HENT: Denies nasal congestion or sore throat. [] Respiratory: Denies cough or shortness of breath. [] Cardiovascular: Denies chest pain or edema. [] GI: Reports epigastric abdominal pain, nausea, vomiting, diarrhea. : Denies urinary symptoms. LMP 2 weeks ago. Musculoskeletal: Denies back pain or joint pain. [] Integument: Denies rash. [] Neurologic: Denies headache, focal weakness or sensory changes. [] Psychiatric: Anxiety. Heart Score: C/O Chest Pain: No Risk Factors: Risk Factors: DM, Current or recent (<one month) smoker, HTN, HLP, family history of CAD, obesity. Risk Scores: Score 0 - 3: 2.5% MACE over next 6 weeks - Discharge Home Score 4 - 6: 20.3% MACE over next 6 weeks - Admit for Clinical Observation Score 7 - 10: 72.7% MACE over next 6 weeks - Early Invasive Strategies Allergies: Allergies: Allergies Coded Allergies Type Severity Reaction Last Updated Verified No Known Drug Allergies 05/15/21 No Physical Exam: PE: Constitutional: Well developed, well nourished, no acute distress, non-toxic appearance. [] HENT: Normocephalic, atraumatic, bilateral external ears normal, mucous membranes are moist. Eyes: Sclera are clear and anicteric. Neck: Normal range of motion, no tenderness, supple, trachea is midline. Cardiovascular:Heart rate regular rhythm, +2 radial and posterior tibial pulses bilaterally. Lungs & Thorax: Bilateral breath sounds clear to auscultation [] Abdomen: Abdomen is obese, soft, nondistended, normal bowel sounds, no tenderness elicited on exam. No flank or abdominal ecchymoses. No CVA tenderness. No palpable masses organomegaly. Skin: Warm, dry, no erythema, no rash. No jaundice. Back: No tenderness, no CVA tenderness. [] Extremities: No tenderness, no cyanosis, no clubbing, ROM intact, no edema. No calf tenderness. Neurologic: Alert and oriented X 3, normal motor function, normal sensory function, no focal deficits noted. Ambulatory with a steady gait. Psychologic: Anxious. She is cooperative. Current Patient Data: Vital Signs: Vital Signs Date Time Temp Pulse Resp B/P (MAP) Pulse Ox O2 Delivery O2 Flow Rate FiO2 05/15/21 12:06 97.7 74 14 119/82 (94) 96 Room Air 97.7 EKG: EKG: [] Radiology/Procedures: Radiology/Procedures: IMAGING REPORT Signed PATIENT: TIMMY GARZA ACCOUNT: [id number] : 1990 LOCATION: ER AGE: 30 SEX: F EXAM STATUS: REG ER ORD. PHYSICIAN: NOMRAN LARSEN DO REASON: abdominal pain PROCEDURE: CT ABD PELV W/ IV CONTRST ONLY PQRS Compliance Statement: One or more of the following individualized dose reduction techniques were utilized for this examination: 1. Automated exposure control 2. Adjustment of the mA and/or kV according to patient size 3. Use of iterative reconstruction technique CT abdomen/pelvis with contrast 05/15/2021 3:56 PM INDICATION: Abdominal pain COMPARISON: CT abdomen/pelvis 04/25/2021 TECHNIQUE: Multiple axial CT images of the abdomen and pelvis were obtained after the intravenous administration of nonionic contrast. Coronal and sagittal reformats are provided. FINDINGS: There is subsegmental atelectasis at the right lung base. Liver, spleen, adrenal glands, pancreas and kidneys are normal. No hydronephrosis or suspicious renal mass. Small and large bowel are normal in caliber. There is no evidence for bowel obstruction. There are no pericolonic inflammatory changes. A normal, nondilated appendix is visualized without adjacent inflammatory changes. IUD within the lower endometrial canal. Trace pelvic free fluid may be physiologic. Follicular changes are identified within the adnexa. No suspicious osseous abnormality is identified. There is normal in course and caliber. No pathologically enlarged lymph nodes identified in abdomen and pelvis. There is no abdominal free fluid or free intraperitoneal air. Urinary bladder is within normal limits given degree of distention. No suspicious osseous normality. IMPRESSION: Trace pelvic free fluid may be physiologic. If there is persistent clinical concern, further evaluation with pelvic ultrasound could be of benefit. IUD is in similar position compared to prior examination. There is bibasilar subsegmental atelectasis versus scarring. Electronically signed by: Carol Ann Osborn MD (05/15/2021 4:35 PM) [id number] DICTATED and SIGNED BY: CAROL ANN OSBORN MD DATE: 05/15/21 [id number] 0 Course & Med Decision Making: Course & Med Decision Making Pertinent Labs and Imaging studies reviewed. (See chart for details) The patient is given IV fluid bolus, IV Reglan, IV Benadryl, IV Toradol, as well as IV Ativan. At 1 point, prior to receiving Ativan, she was just screaming into an emesis basin with no actual emesis produced. This combination of medications did appear to clinically improve her symptoms. No further vomiting or retching occurred. She was able to tolerate a p.o. GI cocktail without dif ficulty. She has a benign, nonsurgical abdominal exam. There is no indication for further invasive exams, imaging or admission at this time. I have encouraged her to cease use of marijuana. She is to eat a bland diet. She is to continue compliance with her PPI treatment. I recommend she contact her PCP as well as her GI physician this week to arrange for outpatient follow-up. She is amenable to discharge with prescriptions for Phenergan and Zofran. Return precautions are given. Brendan Disclaimer: Brendan Disclaimer: This electronic medical record was generated, in whole or in part, using a voice recognition dictation system. Departure Departure Impression: Primary Impression: Nausea and vomiting Qualified Codes: R11.2 - Nausea with vomiting, unspecified Additional Impression: Gastritis Qualified Codes: K29.50 - Unspecified chronic gastritis without bleeding Disposition: HOME / SELF CARE / HOMELESS Condition: STABLE Referrals: DYLON AMARO (PCP) Patient Instructions: Gastritis, Adult, Nausea and Vomiting Additional Instructions: Use the medication as directed/as needed. Eat a bland diet. Drink plenty of clear fluids. Avoid any use of marijuana or alcohol. Avoid eating salty or spicy foods. Continue taking your prescribed medications as directed. Contact your primary care physician and GI physician for follow-up and for further evaluation and treatment of your condition. Scripts Ondansetron Hcl (ZOFRAN) 4 Mg Tablet 1 TAB PO Q6HRS, #20 TAB Prov: NORMAN LARSEN DO 05/15/21 Promethazine Hcl (PROMETHAZINE HCL) 25 Mg Tablet 1 TAB PO PRN Q6HRS for vomiting, #20 TAB Prov: NORMAN LARSEN DO 05/15/21 NORMAN LARSEN DO May 15, 2021 12:45
[2021-05-15] MEDS ORDERED: METOCLOPRAMIDE HCL 10 MG/2 ML VIAL. IVP ONE (13:00)
[2021-05-15] MEDS ORDERED: PANTOPRAZOLE IV PUSH 40 MG VIAL. IVP ONE (13:00)
[2021-05-15] MEDS ORDERED: IV NORMAL SALINE 1000ML BAG 1,000 ML IV ONE (13:00)
[2021-05-15] MEDS ORDERED: diphenhydrAMINE 50 MG/ML VIAL IVP ONE (13:00)
[2021-05-15 13:09] LABS: BASO # 0.1 x10^3/uL (0.0-0.2); BASO % 0 % (0-3); EOS % 0 % (0-3); HEMATOCRIT 44.7 % (36.0-47.0); HEMOGLOBIN 15.3 g/dL (12.0-15.5); LYMPH # 1.3 x10^3/uL (1.0-4.8); LYMPH % 8 % (24-48); MEAN CORPUSCULAR HEMOGLOBIN 30 pg (25-35); MEAN CORPUSCULAR HGB CONC 34 g/dL (31-37); MEAN CORPUSCULAR VOLUME 89 fL (79-100); MONO # 0.4 x10^3/uL (0.0-1.1); MONO % 3 % (0-9); NEUT # 13.4 x10^3/uL (1.8-7.7); NEUT % 89 % (31-73); PLATELET COUNT 468 x10^3/uL (140-400); RED BLOOD COUNT 5.04 x10^6/uL (3.50-5.40); WHITE BLOOD COUNT 15.2 x10^3/uL (4.0-11.0)
[2021-05-15 13:17] LABS: CALCIUM 8.9 mg/dL (8.5-10.1); CREATININE 0.7 mg/dL (0.6-1.0); GFR 98.3
[2021-05-15 13:21] LABS: ALBUMIN 4.1 g/dL (3.4-5.0); ALBUMIN/GLOBULIN RATIO 1.1 (1.0-1.7); TOTAL BILIRUBIN 0.7 mg/dL (0.2-1.0)
[2021-05-15 13:41] LABS: PREG TEST PT QUAL NEGATIVE (NEG)
[2021-05-15] MEDS ORDERED: KETOROLAC 15 MG/ML VIAL. IVP ONE (14:00)
[2021-05-15 14:22] LABS: BILIRUBIN,URINE NEGATIVE (NEG); CLARITY,URINE CLOUDY; COLOR,URINE AMBER; NITRITE,URINE NEGATIVE (NEG); PH,URINE 5.5 (<5.0-8.0); PROTEIN,URINE 30 mg/dL (NEG-TRACE); UROBILINOGEN,URINE 0.2 mg/dL (0.2 mg/dL)
[2021-05-15 14:46] LABS: AMORPHOUS SEDIMENT,UR PRESENT /HPF
[2021-05-15 14:47] LABS: BACTERIA,URINE FEW /HPF (0-FEW)
[2021-05-15 14:48] LABS: RBC,URINE 0 /HPF (0-2)
[2021-05-15 15:03] LABS: % BANDS 2 % (0-9); % LYMPHS 9 % (24-48); % SEGS 89 % (35-66); PLT ESTIMATE INCREASED (ADEQUATE)
[2021-05-15] MEDS ORDERED: IOHEXOL 300 MG/ML 100ML VIAL. IV ONE (16:00)
[2021-05-15] MEDS ORDERED: CONTRAST GIVEN. MC PRN (16:00)
--- NOTE | 2021-05-15 16:37 | RAD ---
PQRS Compliance Statement: One or more of the following individualized dose reduction techniques were utilized for this examinat ion: 1. Automated exposure control 2. Adjustment of the mA and/or kV according to patient size 3. Use of iterative reconstruction technique CT abdomen/pelvis with contrast 05/15/2021 3:56 PM INDICATION: Abdominal pain COMPARISON: CT abdomen/pelvis 04/25/2021 TECHNIQUE: Multiple axial CT images of the abdomen and pelvis were obtained after the intravenous adm inistration of nonionic contrast. Coronal and sagittal reformats are provided. FINDINGS: There is subsegmental atelectasis at the right lung base. Liver, spleen, adrenal glands, pancreas and kidneys are normal. No hydronephrosis or suspicious renal mass. Small and large bowel are normal in caliber. There is no evidence for bowel obstruction. There are no pericolonic inflammatory changes. A normal, nondilated appendix is visualized without adjacent inflammatory changes. IUD within the lowe r endometrial canal. Trace pelvic free fluid may be physiologic. Follicular changes are identified wi thin the adnexa. No suspicious osseous abnormality is identified. There is normal in course and calib er. No pathologically enlarged lymph nodes identified in abdomen and pelvis. There is no abdominal fr ee fluid or free intraperitoneal air. Urinary bladder is within normal limits given degree of distent ion. No suspicious osseous normality. IMPRESSION: Trace pelvic free fluid may be physiologic. If there is persistent clinical concern, further evaluati on with pelvic ultrasound could be of benefit. IUD is in similar position compared to prior examinati on. There is bibasilar subsegmental atelectasis versus scarring. Electronically signed by: Shannan Holder MD (05/15/2021 4:35 PM) [id number]
[2021-05-15 16:58] VITALS: BP 162/85
[2021-05-15] MEDS ORDERED: LIDO:MAALOX 1:1 20 ML SINGLE DOSE. SWSW ONE (17:00)
[2021-05-15] MEDS ORDERED: ONDA4TAB7 PO (17:43)
[2021-05-15] MEDS ORDERED: PROM25TA10 PO (17:43)
== END 2021-05-15 17:47 | disposition home or self-care (01) ==
LOC: ER 10:54
DX: K29.50 Unspecified chronic gastritis without bleeding (principal); R11.2 Nausea with vomiting, unspecified; F31.9 Bipolar disorder, unspecified; F17.200 Nicotine dependence, unspecified, uncomplicated; Z90.49 Acquired absence of other specified parts of digestive tract
CPT/HCPCS: 36415; 74177; 80053; 81001; 81025; 83690; 84703; 85007; 85025; 96361; 96374; 96375; 99285; C9113; J1200; J1885; J2060; J2765; J7030

== ENCOUNTER 2021-05-22 10:29 | Emergency (ER) | payer BC ==
[~2021-05-22] VITALS: Ht 165.1 cm; Wt 91.0 kg
[~2021-05-22 10:29] MED LIST changes: +PROM25TA10 PO
--- NOTE | 2021-05-22 11:20 | PHYS DOC ---
Past Medical History Past Medical History: Anxiety, Bipolar, Depression Additional Past Medical Histor: peptic ulcers Past Surgical History: Cholecystectomy Additional Past Surgical Histo: EYE SX Smoking Status: Current Every Day Smoker Alcohol Use: None Drug Use: Marijuana General Adult EDM: Chief Complaint: NAUSEA/VOMITING/DIARRHEA HPI: HPI: Patient is a 30 year old female here with epigastric abdominal pain and nausea and vomiting. She has a history of peptic ulcer disease and gastritis. She has reported these symptoms for at least 6 years. She is seeing her GI physician multiple times. I saw her a few days ago for the same symptoms. She reports that she is taking her Protonix as directed. I told her to increase it to twice a day for 3 days and then resume daily, she reports that she has done this. She was prescribed oral Phenergan and oral Zofran upon discharge at that time. She will not say whether or not she is taking these as directed. She reports that she has a history of smoking marijuana but has reportedly not smoked marijuana in about a week. She told me this last week when I saw her as well. No hematemesis reported. No diarrhea or constipation reported. No lower abdominal pain reported. No urinary symptoms reported. No chest pain or dyspnea reported no fevers or chills. She refuses to provide a urine sample here. She is demanding pain medication. Review of Systems: Review of Systems: Constitutional: Denies fever or chills. [] Respiratory: Denies cough or shortness of breath. [] Cardiovascular: Denies chest pain or edema. [] GI: Reports epigastric abdominal pain and nausea and vomiting. Denies constipation, diarrhea, melena, hematochezia. : Denies urinary symptoms. Musculoskeletal: Denies back pain or joint pain. [] Integument: Denies rash. [] Neurologic: Denies headache, focal weakness or sensory changes. [] Endocrine: Denies polyuria or polydipsia. [] Lymphatic: Denies swollen glands. [] Psychiatric: Anxiety and mood disturbance, unchanged, marijuana use Heart Score: C/O Chest Pain: No Risk Factors: Risk Factors: DM, Current or recent (<one month) smoker, HTN, HLP, family history of CAD, obesity. Risk Scores: Score 0 - 3: 2.5% MACE over next 6 weeks - Discharge Home Score 4 - 6: 20.3% MACE over next 6 weeks - Admit for Clinical Observation Score 7 - 10: 72.7% MACE over next 6 weeks - Early Invasive Strategies Allergies: Allergies: Allergies Coded Allergies Type Severity Reaction Last Updated Verified No Known Drug Allergies 05/15/21 No Physical Exam: PE: Constitutional: Well developed, well nourished, no acute distress, non-toxic appearance. [] HENT: Normocephalic, atraumatic, mucous membranes are moist. Eyes: Sclera are clear and anicteric. Neck: Trachea midline Cardiovascular:Heart rate regular rhythm, +2 radial and steer tibial pulses bilaterally Lungs & Thorax: Bilateral breath sounds clear to auscultation [] Abdomen: Abdomen is obese, soft, nondistended, I am unable to elicit any tenderness to palpation. Normal bowel sounds noted. No palpable mass organomegaly. No flank or abdominal ecchymoses. No CVA tenderness. Skin: Warm, dry, no erythema, no rash. No jaundice. Back: No tenderness, no CVA tenderness. [] Extremities: No tenderness, no cyanosis, no clubbing, ROM intact, no edema. [] Neurologic: Alert and oriented X 3, normal motor function, normal sensory function, no focal deficits noted. [] Psychologic: Initially, affect is flat. After being told that she will not be prescribed opioid pain medication, she becomes quite hostile. [] EKG: EKG: [] Radiology/Procedures: Radiology/Procedures: [] Course & Med Decision Making: Course & Med Decision Making Pertinent Labs and Imaging studies reviewed. (See chart for details) I discussed the findings, differential diagnosis and plan of care with her. She is given IV Protonix, IV fluid bolus, as well as IV Zofran. Her vomiting has ceased here. She demands pain medication. I had the same discussion with her a few days ago when I saw her in the emergency room at that opioids are not appropriate for chronic abdominal pain or for treatment of gastritis or peptic ulcer disease. She had CT imaging when I saw her a few days ago, which was found to be unremarkable. Clinically, I am unable to elicit any tenderness on abdominal exam, she has a benign and nonsurgical abdominal exam. No clinical indication for repeat imaging at this time. She is hemodynamically stable and o verall well-appearing. Leukocytosis likely secondary to heavy retching and acute stress reaction, no indication of obvious infectious process. She repeatedly refuses to provide a UA. She refuses to take a GI cocktail. I explained that she should contact her PCP for follow-up, I recommend that she contact her GI physician as well. She reports she has plenty of her Protonix. I have already prescribed antiemetics for her, no indication for more prescription at this time. She is angry and upset that she is not being prescribed opioid medication here or for discharge. I kindly and once again explained that this is not appropriate treatment for her condition. I explained that empathize that I understand that she is uncomfortable and in pain, and I am understanding of her condition, but this is still not appropriate treatment. She angrily yells that she is going to [facility]. I explained that she is free to do what ever she would like, but she will be discharged from this emergency department at this time. I told her she may return immediately for any other concerns or problems, should she develop any worsening or changed symptoms from her baseline. Brendan Disclaimer: Brendan Disclaimer: This electronic medical record was generated, in whole or in part, using a voice recognition dictation system. Departure Departure Impression: Primary Impression: Nausea and vomiting Qualified Codes: R11.2 - Nausea with vomiting, unspecified Additional Impression: Gastritis Qualified Codes: K29.50 - Unspecified chronic gastritis without bleeding Disposition: 01 HOME / SELF CARE / HOMELESS Condition: STABLE Referrals: DYLON AMARO (PCP) Patient Instructions: Gastritis, Adult, Nausea and Vomiting Additional Instructions: Use the previously prescribed medications as directed. Eat a bland diet, drink clear fluids. Avoid use of marijuana. Avoid spicy, salty or greasy foods. Please contact your primary care physician and your GI physician as previously discussed. Return for any acute changes in your symptoms, for acute changes in pain, for vomiting blood, fever of 100.4 or higher, or for any other concerns. NORMAN LARSEN DO May 22, 2021 11:20
[2021-05-22] MEDS ORDERED: PANTOPRAZOLE IV PUSH 40 MG VIAL. IVP ONE (11:30)
[2021-05-22] MEDS ORDERED: ONDANSETRON PF 4 MG/2 ML VIAL. IVP ONE (11:30)
[2021-05-22] MEDS ORDERED: IV NORMAL SALINE 1000ML BAG 1,000 ML IV ONE (11:30)
[2021-05-22 11:45] LABS: BASO # 0.1 x10^3/uL (0.0-0.2); BASO % 1 % (0-3); EOS # 0.1 x10^3/uL (0.0-0.7); EOS % 0 % (0-3); HEMATOCRIT 43.5 % (36.0-47.0); HEMOGLOBIN 14.9 g/dL (12.0-15.5); LYMPH # 1.6 x10^3/uL (1.0-4.8); LYMPH % 9 % (24-48); MEAN CORPUSCULAR HEMOGLOBIN 30 pg (25-35); MEAN CORPUSCULAR HGB CONC 34 g/dL (31-37); MEAN CORPUSCULAR VOLUME 88 fL (79-100); MONO # 0.7 x10^3/uL (0.0-1.1); MONO % 4 % (0-9); NEUT # 15.2 x10^3/uL (1.8-7.7); NEUT % 86 % (31-73); PLATELET COUNT 483 x10^3/uL (140-400); RED BLOOD COUNT 4.94 x10^6/uL (3.50-5.40); WHITE BLOOD COUNT 17.7 x10^3/uL (4.0-11.0)
[2021-05-22 11:55] LABS: CALCIUM 9.1 mg/dL (8.5-10.1); CREATININE 0.5 mg/dL (0.6-1.0); GFR 144.9; POTASSIUM 4.4 mmol/L (3.5-5.1)
[2021-05-22 12:01] LABS: ALBUMIN/GLOBULIN RATIO 1.2 (1.0-1.7); TOTAL BILIRUBIN 0.3 mg/dL (0.2-1.0); TOTAL PROTEIN 7.3 g/dL (6.4-8.2)
[2021-05-22 12:42] LABS: % BANDS 3 % (0-9); % LYMPHS 8 % (24-48); % MONOS 4 % (0-10); % SEGS 85 % (35-66); PLT ESTIMATE INCREASED (ADEQUATE)
[2021-05-22 12:50] VITALS: BP 146/78
== END 2021-05-22 12:50 | disposition home or self-care (01) ==
LOC: ER 10:29
DX: K29.50 Unspecified chronic gastritis without bleeding (principal); F31.9 Bipolar disorder, unspecified; F17.200 Nicotine dependence, unspecified, uncomplicated; Z90.49 Acquired absence of other specified parts of digestive tract
CPT/HCPCS: 36415; 80053; 83690; 84702; 85007; 85025; 96361; 96374; 96375; 99284; C9113; J2405; J7030

== ENCOUNTER 2021-09-11 16:34 | Emergency (ER) | payer BC ==
[~2021-09-11] VITALS: Ht 165.1 cm; Wt 99.0 kg
[2021-09-11 17:29] LABS: BILIRUBIN,URINE NEGATIVE (NEG); CLARITY,URINE CLOUDY; COLOR,URINE YELLOW; NITRITE,URINE NEGATIVE (NEG); PROTEIN,URINE 100 mg/dL (NEG-TRACE); UROBILINOGEN,URINE 0.2 mg/dL (0.2 mg/dL)
[2021-09-11] MEDS ORDERED: IV NORMAL SALINE 1000ML BAG 1,000 ML IV SCH (17:30)
[2021-09-11] MEDS ORDERED: ONDANSETRON PF 4 MG/2 ML VIAL. IVP ONE (17:30)
[2021-09-11] MEDS ORDERED: FAMOTIDINE 20 MG/2 ML VIAL IVP ONE (17:30)
[2021-09-11] MEDS ORDERED: IV NORMAL SALINE 1000ML BAG 1,000 ML IV ONE (17:30)
[2021-09-11] MEDS ORDERED: METOCLOPRAMIDE HCL 10 MG/2 ML VIAL. IVP ONE (17:30)
[2021-09-11 17:37] LABS: BARBITURATES NEG (NEG); BENZODIAZEPINES NEG (NEG); CANNABINOIDS POS (NEG); COCAINE NEG (NEG); METHADONE NEG (NEG); OPIATES NEG (NEG); PHENCYCLIDINE NEG (NEG)
[2021-09-11 17:43] LABS: AMPHETAMINE/METHAMPHETAMINE NEG (NEG)
--- NOTE | 2021-09-11 17:44 | PHYS DOC ---
Past Medical History Past Medical History: Anxiety, Bipolar, Depression Additional Past Medical Histor: peptic ulcers,MARAJAUNA ABUSE,CHRONIC ABD PAIN N/V ESPHOGITIS,PUD,OBESITY Past Surgical History: Cholecystectomy, Other Additional Past Surgical Histo: EYE SX Smoking Status: Current Every Day Smoker Additional Information: 07/23 Alcohol Use: None Drug Use: Marijuana General Adult EDM: Chief Complaint: ABDOMINAL PAIN HPI: HPI: Patient is a 30 year old female who presents with she began throwing up about 8:00 this morning generalized abdominal pain is an aching type pain. Patient currently retching and vomiting bile. She states this happens often. Rating her pain a 10 out of 10. Patient has a history of hepatomegaly, hypokalemia, depression, bipolar, cholecystectomy, smoking, marijuana abuse, marijuana hyperemesis, gastritis, colitis, gastroparesis, leukocytosis, PUD, esophagitis. She denies chest pain, dizziness, headache, syncope, shortness of air, fever, back pain, urinary symptoms, vaginal discharge, diarrhea, numbness or tingling, focal weakness. Review of Systems: Review of Systems: Constitutional: Denies fever or chills. [] Eyes: Denies change in visual acuity. [] HENT: Denies nasal congestion or sore throat. [] Respiratory: Denies cough or shortness of breath. [] Cardiovascular: Denies chest pain or edema. [] GI: + abdominal pain, +nausea, +vomiting, denies bloody stools or diarrhea. [] : Denies dysuria. [] Musculoskeletal: Denies back pain or joint pain. [] Integument: Denies rash. [] Neurologic: Denies headache, focal weakness or sensory changes. [] Endocrine: Denies polyuria or polydipsia. [] Lymphatic: Denies swollen glands. [] Psychiatric: Denies depression or anxiety. [] Heart Score: C/O Chest Pain: No Current Medications: Current Medications Medications (Trade) Dose Ordered Sig/Oumar Start Time Stop Time Status Last Admin Dose Admin Famotidine (Pepcid Vial) 20 mg 1X ONCE 09/11/21 17:30 09/11/21 17:31 DC Metoclopramide HCl (Reglan Vial) 10 mg 1X ONCE 09/11/21 17:30 09/11/21 17:31 DC Ondansetron HCl (Zofran) 4 mg 1X ONCE 09/11/21 17:30 09/11/21 17:31 DC Sodium Chloride 1,000 ml @ 1,000 mls/hr 1X ONCE 09/11/21 17:30 09/11/21 18:29 Allergies: Allergies: Allergies Coded Allergies Type Severity Reaction Last Updated Verified No Known Drug Allergies 09/11/21 No Physical Exam: PE: Constitutional: Well developed, well nourished, no acute distress, non-toxic appearance. [] HENT: Normocephalic, atraumatic, bilateral external ears normal, oropharynx moist, no oral exudates, nose normal. [] Eyes: PERRLA, EOMI, conjunctiva normal, no discharge. [] Neck: Normal range of motion, no tenderness, supple, no stridor. [] Cardiovascular:Heart rate regular rhythm, no murmur [] Lungs & Thorax: Bilateral breath sounds clear to auscultation [] Abdomen: Bowel sounds normal, soft, generalized tenderness, no masses, no pulsatile masses. [] Skin: Warm, dry, no erythema, no rash. [] Back: No tenderness, no CVA tenderness. [] Extremities: No tenderness, no cyanosis, no clubbing, ROM intact, no edema. [] Neurologic: Alert and oriented X 3, normal motor function, normal sensory function, no focal deficits noted. [] Psychologic: Affect normal, judgement normal, mood normal. [] Current Patient Data: Vital Signs: Vital Signs Date Time Temp Pulse Resp B/P (MAP) Pulse Ox O2 Delivery O2 Flow Rate FiO2 09/11/21 16:34 97.5 86 24 160/95 (116) 98 Room Air 97.5 EKG: EKG: [] Radiology/Procedures: Radiology/Procedures: [] Course & Med Decision Making: Course & Med Decision Making Pertinent Labs and Imaging studies reviewed. (See chart for details) See HPI. Alert and oriented x4. Ambulatory steady gait. Speaks in full clear sentences. Skin pink warm and dry. Afebrile. No CVA tenderness. Abdomen is soft with some generalized tenderness with palpation. Patient is vomiting bile. There is no hematoemesis. Patient's acute abdominal series has not been taken yet. Patient has stopped vomiting. She was given 2 L of normal saline, Zofran, Reglan. Patient states she does not want a wait for the rest of her blood work to come back. She states she is refusing that acute abdominal series. She states all " she needed was some sleep". Patient states she was to get back onto her grandmother. Patient is educated that we cannot fully evaluate her and there could be critical findings that could cause her or disability. Patient states her understanding but that she is feeling better and that she is leaving. [] Scottyon Disclaimer: Brendan Disclaimer: This electronic medical record was generated, in whole or in part, using a voice recognition dictation system. Departure Departure Impression: Primary Impression: Abdominal pain Qualified Codes: R10.84 - Generalized abdominal pain Additional Impressions: Nausea and vomiting Qualified Codes: R11.2 - Nausea with vomiting, unspecified Left against medical advice Disposition: 07 LEFT AGAINST MEDICAL ADVICE Condition: STABLE Referrals: DYLON AMARO (PCP) ROM PATEL APRN Sep 11, 2021 17:44
[2021-09-11 17:56] LABS: BASO # 0.1 x10^3/uL (0.0-0.2); BASO % 1 % (0-3); EOS % 0 % (0-3); HEMATOCRIT 42.4 % (36.0-47.0); HEMOGLOBIN 14.2 g/dL (12.0-15.5); LYMPH # 1.1 x10^3/uL (1.0-4.8); LYMPH % 7 % (24-48); MEAN CORPUSCULAR HEMOGLOBIN 29 pg (25-35); MEAN CORPUSCULAR HGB CONC 33 g/dL (31-37); MEAN CORPUSCULAR VOLUME 88 fL (79-100); MONO # 0.4 x10^3/uL (0.0-1.1); MONO % 2 % (0-9); NEUT # 15.5 x10^3/uL (1.8-7.7); NEUT % 90 % (31-73); PLATELET COUNT 486 x10^3/uL (140-400); RED BLOOD COUNT 4.83 x10^6/uL (3.50-5.40); RED CELL DISTRIBUTION WIDTH 13.9 % (11.5-14.5); WHITE BLOOD COUNT 17.1 x10^3/uL (4.0-11.0)
[2021-09-11 18:09] LABS: RBC,URINE 20-40 /HPF (0-2)
[2021-09-11 18:12] LABS: INFLUENZA A PATIENT NEGATIVE (NEGATIVE); INFLUENZA B PATIENT NEGATIVE (NEGATIVE)
[2021-09-11 18:14] LABS: BACTERIA,URINE 0 /HPF (0-FEW)
[2021-09-11 18:47] VITALS: BP 155/74
[2021-09-11 19:18] LABS: CALCIUM 9.1 mg/dL (8.5-10.1); CREATININE 0.6 mg/dL (0.6-1.0); GFR 117.4; POTASSIUM 3.7 mmol/L (3.5-5.1)
[2021-09-11 19:28] LABS: ALBUMIN 4.2 g/dL (3.4-5.0); MAGNESIUM 1.9 mg/dL (1.8-2.4); TOTAL BILIRUBIN 0.5 mg/dL (0.2-1.0); TOTAL PROTEIN 8.3 g/dL (6.4-8.2)
[2021-09-11 19:32] LABS: U PREG PATIENT NEGATIVE (NEG)
[2021-09-11 20:03] LABS: % ATYL 1 % (0-0); % LYMPHS 8 % (24-48); % MONOS 2 % (0-10); % SEGS 89 % (35-66)
[2021-09-11 20:04] LABS: PLT ESTIMATE ADEQUATE (ADEQUATE)
== END 2021-09-11 18:53 | disposition left against medical advice (07) ==
LOC: ER 16:34
DX: R10.84 Generalized abdominal pain (principal); R11.2 Nausea with vomiting, unspecified; F31.9 Bipolar disorder, unspecified; G89.29 Other chronic pain; F17.200 Nicotine dependence, unspecified, uncomplicated; Z90.49 Acquired absence of other specified parts of digestive tract
CPT/HCPCS: 36415; 80053; 80307; 81001; 81025; 83690; 83735; 85007; 85025; 87086; 87428; 96361; 96374; 96375; 99284; J2405; J2765; J3490; J7030

== ENCOUNTER 2021-11-05 07:42 | Emergency (ER) | payer BC ==
[~2021-11-05] VITALS: Ht 172.7 cm; Wt 99.8 kg
[2021-11-05] MEDS ORDERED: IV NORMAL SALINE 1000ML BAG 1,000 ML IV SCH (08:00)
[2021-11-05] MEDS ORDERED: ONDANSETRON PF 4 MG/2 ML VIAL. IVP ONE (08:00)
[2021-11-05] MEDS ORDERED: MORPHINE SULFATE 4 MG/ML INJ. IVP ONE (08:15)
[2021-11-05 08:18] LABS: BASO % 0 % (0-3); EOS % 0 % (0-3); HEMATOCRIT 43.6 % (36.0-47.0); HEMOGLOBIN 15.1 g/dL (12.0-15.5); LYMPH # 1.3 x10^3/uL (1.0-4.8); LYMPH % 7 % (24-48); MEAN CORPUSCULAR HEMOGLOBIN 30 pg (25-35); MEAN CORPUSCULAR HGB CONC 35 g/dL (31-37); MEAN CORPUSCULAR VOLUME 86 fL (79-100); MONO # 0.5 x10^3/uL (0.0-1.1); MONO % 3 % (0-9); NEUT # 16.3 x10^3/uL (1.8-7.7); NEUT % 90 % (31-73); PLATELET COUNT 535 x10^3/uL (140-400); RED BLOOD COUNT 5.05 x10^6/uL (3.50-5.40); RED CELL DISTRIBUTION WIDTH 13.7 % (11.5-14.5); WHITE BLOOD COUNT 18.1 x10^3/uL (4.0-11.0)
[2021-11-05] MEDS ORDERED: CAPSAICIN 0.025% TOPICAL CREAM 60GM TUBE. TP SCH (08:45)
--- NOTE | 2021-11-05 09:00 | NUR ---
Pt's VK # failed to upload. Result recorded at [id number] is negative and the doctor has been notified of this result. This tech called lab and, per the lab staff member's instructions, result has been recorded on an I-Stat sheet due to no HCG urine test correction sheets could be found. Hard copy of HCG result as well as pt's patient sticker have been secured to previously mentioned sheet. Correction sheet sent to lab.
[2021-11-05 09:02] LABS: BARBITURATES NEG (NEG); BENZODIAZEPINES NEG (NEG); CANNABINOIDS POS (NEG); COCAINE NEG (NEG); METHADONE NEG (NEG); OPIATES NEG (NEG); PHENCYCLIDINE NEG (NEG)
[2021-11-05 09:04] LABS: AMPHETAMINE/METHAMPHETAMINE NEG (NEG)
[2021-11-05 09:16] LABS: BACTERIA,URINE FEW /HPF (0-FEW); HYALINE CASTS, URINE OCCASIONAL /HPF; WBC,URINE OCC /HPF (0-4)
[2021-11-05] MEDS ORDERED: IV NORMAL SALINE 1000ML BAG 1,000 ML IV ONE (09:30)
--- NOTE | 2021-11-05 09:49 | PHYS DOC ---
Past Medical History Past Medical History: Anxiety, Bipolar, Depression Additional Past Medical Histor: peptic ulcers,MARAJAUNA ABUSE,CHRONIC ABD PAIN N/V ESPHOGITIS,PUD,OBESITY Past Surgical History: Cholecystectomy, Other Additional Past Surgical Histo: EYE SX Smoking Status: Current Every Day Smoker Alcohol Use: None Drug Use: Marijuana General Adult EDM: Chief Complaint: NAUSEA/VOMITING/DIARRHEA HPI: HPI: Patient is a 31 year old female who presents with abdominal pain and vomiting for the last 24 hours. Patient states that this happens very frequently. She was previously here several months ago for nausea vomiting and abdominal pain which was similar to this episode. She was diagnosed with cannabinoid hyperemesis syndrome. Patient has capsaicin cream at home but does not use since it kirk. Patient states that she is dehydrated. Patient is otherwise doing well. She requests something for nausea and vomiting. She has no chest p ain, flank tenderness, extremity pain, ataxia. Review of Systems: Review of Systems: Constitutional: Denies fever or chills. [] Eyes: Denies change in visual acuity. [] HENT: Denies nasal congestion or sore throat. [] Respiratory: Denies cough or shortness of breath. [] Cardiovascular: Denies chest pain or edema. [] GI: Positive abdominal pain, nausea, vomiting, no bloody stools or diarrhea. [] : Denies dysuria. [] Musculoskeletal: Denies back pain or joint pain. [] Integument: Denies rash. [] Neurologic: Denies headache, focal weakness or sensory changes. [] Endocrine: Denies polyuria or polydipsia. [] Lymphatic: Denies swollen glands. [] Psychiatric: Denies depression or anxiety. [] Heart Score: C/O Chest Pain: No Risk Factors: Risk Factors: DM, Current or recent (<one month) smoker, HTN, HLP, family history of CAD, obesity. Risk Scores: Score 0 - 3: 2.5% MACE over next 6 weeks - Discharge Home Score 4 - 6: 20.3% MACE over next 6 weeks - Admit for Clinical Observation Score 7 - 10: 72.7% MACE over next 6 weeks - Early Invasive Strategies Current Medications: Current Medications Medications (Trade) Dose Ordered Sig/Oumar Start Time Stop Time Status Last Admin Dose Admin Capsaicin (Zostrix) 1 martin 1X 11/05/21 08:45 Morphine Sulfate (Morphine Sulfate) 4 mg 1X ONCE 11/05/21 08:15 11/05/21 08:23 DC 11/05/21 08:40 4 MG Ondansetron HCl (Zofran) 4 mg 1X ONCE 11/05/21 08:00 11/05/21 08:01 DC 11/05/21 08:06 4 MG Sodium Chloride 1,000 ml @ 1,000 mls/hr 1X ONCE 11/05/21 09:30 11/05/21 10:29 UNV 11/05/21 09:30 1,000 MLS/HR Allergies: Allergies: Allergies Coded Allergies Type Severity Reaction Last Updated Verified No Known Drug Allergies 09/11/21 No Physical Exam: PE: Constitutional: Well developed, well nourished, no acute distress, non-toxic appearance. [] HENT: Normocephalic, atraumatic, bilateral external ears normal, oropharynx moist, no oral exudates, nose normal. [] Eyes: PERRLA, EOMI, conjunctiva normal, no discharge. [] Neck: Normal range of motion, no tenderness, supple, no stridor. [] Cardiovascular:Heart rate regular rhythm, no murmur [] Lungs & Thorax: Bilateral breath sounds clear to auscultation [] Abdomen: Bowel sounds normal, soft, positive epigastric tenderness, no masses, no pulsatile masses. [] Skin: Warm, dry, no erythema, no rash. [] Back: No tenderness, no CVA tenderness. [] Extremities: No tenderness, no cyanosis, no clubbing, ROM intact, no edema. [] Neurologic: Alert and oriented X 3, normal motor function, normal sensory function, no focal deficits noted. [] Psychologic: Affect normal, judgement normal, mood normal. [] Current Patient Data: Labs: Laboratory Tests Test 11/05/21 08:00 11/05/21 08:34 White Blood Count 18.1 x10^3/uL (4.0-11.0) H Red Blood Count 5.05 x10^6/uL (3.50-5.40) Hemoglobin 15.1 g/dL (12.0-15.5) Hematocrit 43.6 % (36.0-47.0) Mean Corpuscular Volume 86 fL (79-100) Mean Corpuscular Hemoglobin 30 pg (25-35) Mean Corpuscular Hemoglobin Concent 35 g/dL (31-37) Red Cell Distribution Width 13.7 % (11.5-14.5) Platelet Count 535 x10^3/uL (140-400) H Neutrophils (%) (Auto) 90 % (31-73) H Lymphocytes (%) (Auto) 7 % (24-48) L Monocytes (%) (Auto) 3 % (0-9) Eosinophils (%) (Auto) 0 % (0-3) Basophils (%) (Auto) 0 % (0-3) Neutrophils # (Auto) 16.3 x10^3/uL (1.8-7.7) H Lymphocytes # (Auto) 1.3 x10^3/uL (1.0-4.8) Monocytes # (Auto) 0.5 x10^3/uL (0.0-1.1) Eosinophils # (Auto) 0.0 x10^3/uL (0.0-0.7) Basophils # (Auto) 0.0 x10^3/uL (0.0-0.2) Platelet Estimate Pending Urine Collection Type Unknown Urine Color (Auto) Yellow Urine Turbidity Hazy Urine pH (Auto) 6.5 (<5.0-8.0) Urine Specific [place] 1.038 (1.000-1.030) Urine Protein (Auto) 300 mg/dL (Negative) Urine Glucose (Auto)(UA) Negative mg/dL (Negative) Urine Ketones (Auto) 40 mg/dL (Negative) Urine Blood (Auto) Moderate (Negative) Urine Nitrite (Auto) Negative (Negative) Urine Bilirubin (Auto) Negative (Negative) Urine Urobilinogen (Auto) Normal mg/dL (Normal) Urine Leukocyte Esterase (Auto) Negative (Negative) Urine RBC 1-2 /HPF (0-2) Urine WBC Occ /HPF (0-4) Urine Squamous Epithelial Cells Many /LPF Urine Bacteria Few /HPF (0-FEW) Urine Hyaline Casts Occasional /HPF Urine Mucus Marked /LPF Urine Opiates Screen Neg (NEG) Urine Methadone Screen Neg (NEG) Urine Barbiturates Neg (NEG) Urine Phencyclidine Screen Neg (NEG) Urine Amphetamine/Methamphetamine Neg (NEG) Urine Benzodiazepines Screen Neg (NEG) Urine Cocaine Screen Neg (NEG) Urine Cannabinoids Screen Pos (NEG) Urine Ethyl Alcohol Neg (NEG) Laboratory Tests 11/05/21 08:00 Vital Signs: Vital Signs Date Time Temp Pulse Resp B/P (MAP) Pulse Ox O2 Delivery O2 Flow Rate FiO2 11/05/21 08:40 16 Room Air 11/05/21 07:50 98.5 69 149/89 (109) 98 98.5 EKG: EKG: [] Radiology/Procedures: Radiology/Procedures: [] Impression: 31-year-old female with nausea vomiting secondary to cannabis use. Possible cyclical vomiting syndrome. Course & Med Decision Making: Course & Med Decision Making Pertinent Labs and Imaging studies reviewed. (See chart for details) Patient has a review scheduling coordinator, she was instructed to follow-up with [facility]. Patient felt much better after receiving medications such as normal saline x2, Zofran, capsaicin cream. Patient did have an elevated white count, this is likely due to dehydration as well as stress of nausea and vomiting. Patient was fully recovered at the end of the emergency room stay. Patient was given a prescription for Zofran, patient stated that she has received this before and knows how to administer to self. Patient stable for time discharge. All questions answered, patient comfortable with discharge. Patient stated she would follow-up with her review scheduling coordinator or her primary care physician in 1 to 2 weeks. Brendan Disclaimer: Brendan Disclaimer: This electronic medical record was generated, in whole or in part, using a voice recognition dictation system. Departure Departure Referrals: DYLON AMARO (PCP) Scripts Ondansetron (ONDANSETRON ODT) 4 Mg Tab.rapdis 4 MG PO BID PRN for NAUSEA/VOMITING, #14 TAB Prov: MICHAEL EDUARDO MD 11/05/21 MICHAEL EDUARDO MD Nov 05, 2021 09:49
--- NOTE | 2021-11-05 09:55 | RAD ---
XR ABDOMEN COMP ACUTE History: Abdominal pain Comparison: Chest x-ray 04/25/2021, CT abdomen pelvis 05/15/2021. Technique: Frontal chest with upright and supine radiographs of the abdomen and pelvis. Findings: Chest: Clear lungs. Normal cardiomediastinal silhouette. Bowel gas pattern: Nonspecific bowel gas pattern with a few gas-filled small bowel loops in the left midabdomen. Gas is present throughout the visualized colon. No differential air-fluid levels. No abno rmal small bowel dilatation. Free air: None. Abnormal calcifications: None. Bones: No acute findings. Other: Right upper quadrant cholecystectomy clips. Intrauterine device projects in the pelvis. Impression: 1. Nonspecific, nonobstructive bowel gas pattern. No excessive colonic stool. Electronically signed by: Oli Fernando MD (11/05/2021 9:52 AM) [facility]
[2021-11-05 10:10] LABS: % BANDS 5 % (0-9); % LYMPHS 11 % (24-48); % MONOS 2 % (0-10); % SEGS 82 % (35-66); PLT ESTIMATE INCREASED (ADEQUATE)
[2021-11-05 10:27] LABS: CALCIUM 9.1 mg/dL (8.5-10.1); CREATININE 0.6 mg/dL (0.6-1.0); GFR 116.6; POTASSIUM 3.6 mmol/L (3.5-5.1)
[2021-11-05] MEDS ORDERED: ONDA4TAB12 PO (10:28)
[2021-11-05 10:33] LABS: ALBUMIN 3.9 g/dL (3.4-5.0); ALBUMIN/GLOBULIN RATIO 1.1 (1.0-1.7); TOTAL BILIRUBIN 0.6 mg/dL (0.2-1.0); TOTAL PROTEIN 7.4 g/dL (6.4-8.2)
[2021-11-05 10:50] VITALS: BP 126/68
== END 2021-11-05 10:53 | disposition home or self-care (01) ==
LOC: ER 07:42
DX: R11.2 Nausea with vomiting, unspecified (principal); R10.13 Epigastric pain; F12.988 Cannabis use, unspecified with other cannabis-induced disorder; G89.29 Other chronic pain; F31.9 Bipolar disorder, unspecified; F17.200 Nicotine dependence, unspecified, uncomplicated; Z90.49 Acquired absence of other specified parts of digestive tract
CPT/HCPCS: 36415; 74022; 80053; 80307; 81001; 81025; 83605; 83690; 84484; 85007; 85025; 96361; 96374; 96375; 99284; J2270; J2405; J7030

== ENCOUNTER 2021-11-09 09:04 | Emergency (ER) | payer BC ==
[~2021-11-09] VITALS: Ht 165.1 cm; Wt 90.0 kg
[2021-11-09] MEDS ORDERED: HALOPERIDOL LACTATE 5 MG/ML VIAL. IM ONE (09:30)
[2021-11-09] MEDS ORDERED: IV NORMAL SALINE 1000ML BAG 1,000 ML IV ONE (09:30)
[2021-11-09] MEDS ORDERED: ONDANSETRON PF 4 MG/2 ML VIAL. IVP ONE (09:30)
--- NOTE | 2021-11-09 10:04 | PHYS DOC ---
Past Medical History Past Medical History: Anxiety, Bipolar, Depression Additional Past Medical Histor: pud, esophagitis Past Surgical History: No Surgical History Additional Past Surgical Histo: EYE SX Smoking Status: Never Smoker Alcohol Use: None Drug Use: Marijuana General Adult EDM: Chief Complaint: NAUSEA/VOMITING/DIARRHEA HPI: HPI: Patient is a 31-year-old female who presents today with nausea vomiting. Patient states her symptoms started early this morning, she states she was here over the weekend with similar symptoms and was given Zofran while in the department and instructed to take her [id number] Protonix and to follow-up with her primary care physician or her GI doctor. Patient has not followed up with either of her physicians. Patient states that she has had multiple emergency department visits due to nausea and vomiting and it is related to THC use. Review of Systems: Review of Systems: Constitutional: Denies fever or chills. [] Eyes: Denies change in visual acuity. [] HENT: Denies nasal congestion or sore throat. [] Respiratory: Denies cough or shortness of breath. [] Cardiovascular: Denies chest pain or edema. [] GI: abdominal pain, nausea, vomiting,denies bloody stools or diarrhea. [] : Denies dysuria. [] Musculoskeletal: Denies back pain or joint pain. [] Integument: Denies rash. [] Neurologic: Denies headache, focal weakness or sensory changes. [] Endocrine: Denies polyuria or polydipsia. [] Lymphatic: Denies swollen glands. [] Psychiatric: Denies depression or anxiety. [] Heart Score: C/O Chest Pain: No Risk Factors: Risk Factors: DM, Current or recent (<one month) smoker, HTN, HLP, family history of CAD, obesity. Risk Scores: Score 0 - 3: 2.5% MACE over next 6 weeks - Discharge Home Score 4 - 6: 20.3% MACE over next 6 weeks - Admit for Clinical Observation Score 7 - 10: 72.7% MACE over next 6 weeks - Early Invasive Strategies Current Medications: Current Medications Medications (Trade) Dose Ordered Sig/Oumar Start Time Stop Time Status Last Admin Dose Admin Haloperidol Lactate (Haldol Inj) 2 mg 1X ONCE 11/09/21 09:30 11/09/21 09:34 DC 11/09/21 09:56 2 MG Ondansetron HCl (Zofran) 4 mg 1X ONCE 11/09/21 09:30 11/09/21 09:34 DC 11/09/21 09:56 4 MG Sodium Chloride 1,000 ml @ 999 mls/hr 1X ONCE 11/09/21 09:30 11/09/21 10:30 11/09/21 09:56 999 MLS/HR Allergies: Allergies: Allergies Coded Allergies Type Severity Reaction Last Updated Verified No Known Drug Allergies 09/11/21 No Physical Exam: PE: Constitutional: Well developed, well nourished, mild distress, non-toxic appearance. [] HENT: Normocephalic, atraumatic, bilateral external ears normal, oropharynx moist, no oral exudates, nose normal. [] Eyes: PERRLA, EOMI, conjunctiva normal, no discharge. [] Neck: Normal range of motion, no tenderness, supple, no stridor. [] Cardiovascular:Heart rate regular rhythm, no murmur [] Lungs & Thorax: Bilateral breath sounds clear to auscultation [] Abdomen: Bowel sounds normal, soft, no tenderness, no masses, no pulsatile masses. [] Skin: Warm, dry, no erythema, no rash. [] Back: No tenderness, no CVA tenderness. [] Extremities: No tenderness, no cyanosis, no clubbing, ROM intact, no edema. [] Neurologic: Alert and oriented X 3, normal motor function, normal sensory function, no focal deficits noted. [] Psychologic: Affect normal, judgement normal, mood normal. [] Current Patient Data: Labs: Laboratory Tests Test 11/09/21 09:20 11/09/21 09:30 11/09/21 09:55 11/09/21 10:20 Sodium Level 138 mmol/L Potassium Level 3.3 mmol/L Chloride Level 103 mmol/L Carbon Dioxide Level 25 mmol/L Anion Gap 10 Blood Urea Nitrogen 6 mg/dL Creatinine 0.5 mg/dL Estimated GFR (Cockcroft-Gault) 143.9 Glucose Level 108 mg/dL Calcium Level 8.7 mg/dL Lipase 63 U/L Urine Collection Type Unknown Urine Color (Auto) Yellow Urine Turbidity Hazy Urine pH (Auto) 7.0 Urine Specific [place] 1.023 Urine Protein (Auto) Negative mg/dL Urine Glucose (Auto)(UA) Negative mg/dL Urine Ketones (Auto) Negative mg/dL Urine Blood (Auto) Trace Urine Nitrite Negative Urine Bilirubin (Auto) Negative Urine Urobilinogen (Auto) Normal mg/dL Urine Leukocyte Esterase (Auto) Negative Urine RBC 6-10 /HPF Urine WBC 1-4 /HPF Urine Squamous Epithelial Cells Many /LPF Urine Amorphous Sediment Present /HPF Urine Bacteria Few /HPF Urine Mucus Marked /LPF Urine Test Negative White Blood Count 12.0 x10^3/uL Red Blood Count 4.44 x10^6/uL Hemoglobin 13.3 g/dL Hematocrit 39.2 % Mean Corpuscular Volume 88 fL Mean Corpuscular Hemoglobin 30 pg Mean Corpuscular Hemoglobin Concent 34 g/dL Red Cell Distribution Width 13.6 % Platelet Count 412 x10^3/uL Neutrophils (%) (Auto) 78 % Lymphocytes (%) (Auto) 14 % Monocytes (%) (Auto) 6 % Eosinophils (%) (Auto) 2 % Basophils (%) (Auto) 1 % Neutrophils # (Auto) 9.3 x10^3/uL Lymphocytes # (Auto) 1.6 x10^3/uL Monocytes # (Auto) 0.7 x10^3/uL Eosinophils # (Auto) 0.2 x10^3/uL Basophils # (Auto) 0.1 x10^3/uL Current Medications Medications (Trade) Dose Ordered Sig/Oumar Route PRN Reason Start Time Stop Time Status Last Admin Dose Admin Haloperidol Lactate (Haldol Inj) 2 mg 1X ONCE IM 11/09/21 09:30 11/09/21 09:34 DC 11/09/21 09:56 Sodium Chloride 1,000 ml @ 999 mls/hr 1X ONCE IV 11/09/21 09:30 11/09/21 10:30 DC 11/09/21 09:56 Ondansetron HCl (Zofran) 4 mg 1X ONCE IVP 11/09/21 09:30 11/09/21 09:34 DC 11/09/21 09:56 Iohexol (Omnipaque 300 Mg/ml) 75 ml 1X ONCE IV 11/09/21 11:15 11/09/21 11:18 DC 11/09/21 11:15 Info (CONTRAST GIVEN -- Rx MONITORING) 1 each PRN DAILY PRN MC SEE COMMENTS 11/09/21 11:30 11/11/21 11:29 Metoclopramide HCl (Reglan Vial) 10 mg 1X ONCE IVP 11/09/21 12:30 11/09/21 12:31 DC 11/09/21 12:44 Vital Signs: Vital Signs Date Time Temp Pulse Resp B/P (MAP) Pulse Ox O2 Delivery O2 Flow Rate FiO2 11/09/21 09:14 98.6 80 20 168/80 (109) 99 Room Air 98.6 EKG: EKG: [] Radiology/Procedures: Radiology/Procedures: REASON: abdominal pain, n/v PROCEDURE: CT ABD PELV W/ IV CONTRST ONLY Exam: CT abdomen/pelvis with intravenous contrast Indication: Abdominal pain, nausea and vomiting Comparison: CT abdomen pelvis 05/15/2021 Technique: Helical CT imaging performed of the abdomen and pelvis after the intravenous administration of 75 mL Omnipaque 300 contrast. Sagittal and coronal reformats were obtained. One or more of the following individualized dose reduction techniques were utilized for this examination: 1. Automated exposure control 2. Adjustment of the mA and/or kV according to patient size 3. Use of iterative reconstruction technique. Findings: Lower chest: Lung bases are clear. Heart is normal in size. Liver: Liver is normal in size. No focal liver lesion. Gallbladder/Biliary Tree: Gallbladder is surgically absent. Bile ducts are normal. Pancreas: Normal. Spleen: Normal. Adrenal Glands: Normal. Kidneys/Ureters/Bladder: Kidneys are normal in size and enhance symmetrically. No hydronephrosis. Ureters and bladder are normal. Reproductive Organs: Uterus is anteverted. An intrauterine device is seen in the lower uterine segment and cervix, unchanged. No adnexal mass. Stomach, small bowel, and colon: The stomach is normal. There is no small bowel obstruction. The appendix is normal. The colon is normal. Vasculature: No aortic aneurysm. Lymph Nodes: No lymphadenopathy. Peritoneum and retroperitoneum: No free fluid or free air. Bones: No acute osseous abnormality. Miscellaneous: None. IMPRESSION: 1. No acute abnormality in the abdomen and pelvis. 2. Unchanged low position of intrauterine device in the lower uterine segment and cervix. Electronically signed by: Lauren Johnson MD (11/09/2021 12:09 PM) [id number] [] Course & Med Decision Making: Course & Med Decision Making Pertinent Labs and Imaging studies reviewed. (See chart for details) [1220 reassessment of patient patient states that she has vomited once while in the department after receiving Zofran and Haldol, and she continues to be nauseated, I did review her radiological results with her and tell her there was no acute process at this time. Patient will be given a dose of Reglan for which she had on her last visit to see if that will help her nausea. I did asked the patient if she had smoked any marijuana in the last couple of days and she states yes and I said that could could be contributing to her nausea and vomiting. She verbalized understanding of this. 1300 patient is requesting to go home to follow-up with her primary care physician or GI specialist at a later date. Patient was given a dose of Reglan which helped her nausea. Patient will be given a prescription for p.o. Reglan to help with nausea at home, and then she needs to follow-up with her primary care. Scottyon Disclaimer: Brendan Disclaimer: This electronic medical record was generated, in whole or in part, using a voice recognition dictation system. Departure Departure Impression: Primary Impression: Nausea and vomiting Qualified Codes: R11.2 - Nausea with vomiting, unspecified Disposition: HOME / SELF CARE / HOMELESS Condition: STABLE Referrals: DYLON AMARO (PCP) Patient Instructions: Clear Liquid Diet, Nausea and Vomiting Additional Instructions: Clear liquid diet for the next 24 hours then advance as tolerated Reglan 10 mg take 1 tablet every 6 hours as needed for nausea Follow-up with your primary care physician or your GI specialist for further evaluation and management of your nausea and vomiting Return here to the emergency department if you are unable to keep any by mouth fluids down, or you develop a fever, or your abdominal pain located to the right lower quadrant. Scripts Metoclopramide Hcl (REGLAN) 10 Mg Tablet 1 TAB PO QID, #20 TAB 0 Refills before food and bedtime Prov: RAYRAY SUNSHINE APRN 11/09/21 RAYRAY SUNSHINE APRN Nov 09, 2021 10:04
[2021-11-09 10:09] LABS: CALCIUM 8.7 mg/dL (8.5-10.1); CREATININE 0.5 mg/dL (0.6-1.0); GFR 143.9
[2021-11-09 10:10] LABS: POTASSIUM 3.3 mmol/L (3.5-5.1)
[2021-11-09 10:22] LABS: AMORPHOUS SEDIMENT,UR PRESENT /HPF
[2021-11-09 10:26] LABS: BACTERIA,URINE FEW /HPF (0-FEW)
[2021-11-09 10:50] LABS: BASO # 0.1 x10^3/uL (0.0-0.2); BASO % 1 % (0-3); EOS # 0.2 x10^3/uL (0.0-0.7); EOS % 2 % (0-3); HEMATOCRIT 39.2 % (36.0-47.0); HEMOGLOBIN 13.3 g/dL (12.0-15.5); LYMPH # 1.6 x10^3/uL (1.0-4.8); LYMPH % 14 % (24-48); MEAN CORPUSCULAR HEMOGLOBIN 30 pg (25-35); MEAN CORPUSCULAR HGB CONC 34 g/dL (31-37); MEAN CORPUSCULAR VOLUME 88 fL (79-100); MONO # 0.7 x10^3/uL (0.0-1.1); MONO % 6 % (0-9); NEUT # 9.3 x10^3/uL (1.8-7.7); NEUT % 78 % (31-73); PLATELET COUNT 412 x10^3/uL (140-400); RED BLOOD COUNT 4.44 x10^6/uL (3.50-5.40); RED CELL DISTRIBUTION WIDTH 13.6 % (11.5-14.5)
[2021-11-09] MEDS ORDERED: IOHEXOL 300 MG/ML 100ML VIAL. IV ONE (11:15)
[2021-11-09 11:20] LABS: U PREG PATIENT NEGATIVE (NEG)
[2021-11-09] MEDS ORDERED: CONTRAST GIVEN. MC PRN (11:30)
--- NOTE | 2021-11-09 12:12 | RAD ---
Exam: CT abdomen/pelvis with intravenous contrast Indication: Abdominal pain, nausea and vomiting Comparison: CT abdomen pelvis 05/15/2021 Technique: Helical CT imaging performed of the abdomen and pelvis after the intravenous administratio n of 75 mL Omnipaque 300 contrast. Sagittal and coronal reformats were obtained. One or more of the following individualized dose reduction techniques were utilized for this examinat ion: 1. Automated exposure control 2. Adjustment of the mA and/or kV according to patient size 3. Use of iterative reconstruction technique. Findings: Lower chest: Lung bases are clear. Heart is normal in size. Liver: Liver is normal in size. No focal liver lesion. Gallbladder/Biliary Tree: Gallbladder is surgically absent. Bile ducts are normal. Pancreas: Normal. Spleen: Normal. Adrenal Glands: Normal. Kidneys/Ureters/Bladder: Kidneys are normal in size and enhance symmetrically. No hydronephrosis. Ure ters and bladder are normal. Reproductive Organs: Uterus is anteverted. An intrauterine device is seen in the lower uterine segmen t and cervix, unchanged. No adnexal mass. Stomach, small bowel, and colon: The stomach is normal. There is no small bowel obstruction. The appe ndix is normal. The colon is normal. Vasculature: No aortic aneurysm. Lymph Nodes: No lymphadenopathy. Peritoneum and retroperitoneum: No free fluid or free air. Bones: No acute osseous abnormality. Miscellaneous: None. IMPRESSION: 1. No acute abnormality in the abdomen and pelvis. 2. Unchanged low position of intrauterine device in the lower uterine segment and cervix. Electronically signed by: Lauren Johnson MD (11/09/2021 12:09 PM) [id number]
[2021-11-09] MEDS ORDERED: METOCLOPRAMIDE HCL 10 MG/2 ML VIAL. IVP ONE (12:30)
[2021-11-09] MEDS ORDERED: METO10TA81 PO (13:05)
[2021-11-09 13:13] VITALS: BP 136/74
== END 2021-11-09 13:17 | disposition home or self-care (01) ==
LOC: ER 09:04
DX: R11.2 Nausea with vomiting, unspecified (principal); R10.9 Unspecified abdominal pain; F41.9 Anxiety disorder, unspecified; F31.9 Bipolar disorder, unspecified
CPT/HCPCS: 36415; 74177; 80048; 81001; 81025; 83690; 85025; 96361; 96372; 96374; 96375; 99285; J1630; J2405; J2765; J7030; Q9967

== ENCOUNTER 2021-11-25 14:03 | Emergency (ER) | payer BC ==
[~2021-11-25] VITALS: Ht 165.1 cm; Wt 90.0 kg
[~2021-11-25 14:03] MED LIST changes: +METO10TA81 PO
[2021-11-25] MEDS ORDERED: IV NORMAL SALINE 1000ML BAG 1,000 ML IV ONE (14:30)
[2021-11-25] MEDS ORDERED: HALOPERIDOL LACTATE 5 MG/ML VIAL. IVP ONE (14:30)
[2021-11-25] MEDS ORDERED: FAMOTIDINE 20 MG/2 ML VIAL IVP ONE (14:30)
[2021-11-25] MEDS ORDERED: FAMOTIDINE 20 MG/2 ML VIAL ONE (14:31)
[2021-11-25] MEDS ORDERED: HALOPERIDOL LACTATE 5 MG/ML VIAL. ONE (14:31)
[2021-11-25 14:43] LABS: BASO # 0.1 x10^3/uL (0.0-0.2); BASO % 1 % (0-3); EOS % 0 % (0-3); HEMATOCRIT 41.2 % (36.0-47.0); HEMOGLOBIN 14.5 g/dL (12.0-15.5); LYMPH # 0.5 x10^3/uL (1.0-4.8); LYMPH % 4 % (24-48); MEAN CORPUSCULAR HEMOGLOBIN 31 pg (25-35); MEAN CORPUSCULAR HGB CONC 35 g/dL (31-37); MEAN CORPUSCULAR VOLUME 87 fL (79-100); MONO # 0.5 x10^3/uL (0.0-1.1); MONO % 4 % (0-9); NEUT # 10.9 x10^3/uL (1.8-7.7); NEUT % 90 % (31-73); PLATELET COUNT 460 x10^3/uL (140-400); RED BLOOD COUNT 4.75 x10^6/uL (3.50-5.40); RED CELL DISTRIBUTION WIDTH 13.8 % (11.5-14.5); WHITE BLOOD COUNT 12.1 x10^3/uL (4.0-11.0)
[2021-11-25 14:51] LABS: CALCIUM 9.1 mg/dL (8.5-10.1); CREATININE 0.6 mg/dL (0.6-1.0); GFR 116.6; POTASSIUM 3.6 mmol/L (3.5-5.1)
[2021-11-25 14:57] LABS: ALBUMIN 4.1 g/dL (3.4-5.0); TOTAL BILIRUBIN 0.5 mg/dL (0.2-1.0); TOTAL PROTEIN 8.2 g/dL (6.4-8.2)
[2021-11-25 14:58] LABS: BARBITURATES NEG (NEG); BENZODIAZEPINES NEG (NEG); CANNABINOIDS POS (NEG); COCAINE NEG (NEG); METHADONE NEG (NEG); OPIATES NEG (NEG); PHENCYCLIDINE NEG (NEG)
[2021-11-25 14:59] LABS: AMPHETAMINE/METHAMPHETAMINE NEG (NEG)
[2021-11-25 15:01] LABS: AMORPHOUS SEDIMENT,UR PRESENT /HPF
[2021-11-25 15:02] LABS: BACTERIA,URINE 0 /HPF (0-FEW); RBC,URINE 0 /HPF (0-2); WBC,URINE 0 /HPF (0-4)
[2021-11-25 15:14] LABS: % BANDS 2 % (0-9); % LYMPHS 6 % (24-48); % MONOS 6 % (0-10); % SEGS 86 % (35-66); PLT ESTIMATE INCREASED (ADEQUATE)
[2021-11-25] MEDS ORDERED: METO10TA81 PO (15:38)
[2021-11-25] MEDS ORDERED: ONDA4TAB12 PO (15:38)
--- NOTE | 2021-11-25 15:41 | PHYS DOC ---
Past Medical History Past Medical History: Anxiety, Bipolar, Depression Additional Past Medical Histor: pud, esophagitis Past Surgical History: No Surgical History Additional Past Surgical Histo: EYE SX Smoking Status: Never Smoker Alcohol Use: None Drug Use: Marijuana General Adult EDM: Chief Complaint: NAUSEA/VOMITING/DIARRHEA HPI: HPI: Patient is a 31 year old female with a history of anxiety, bipolar, depression, cannabis induced hyperemesis presenting to the ED today complaining of nausea and vomiting for 2 days. Patient denies any fever, reports sharp generalized mild intermittent abdominal pain. Denies any diarrhea. Denies any urgency, frequency or dysuria. Reports using marijuana in the last 1 month but would not specify when. She states she is currently on pantoprazole for chronic gastritis Review of Systems: Review of Systems: Constitutional: Denies fever or chills. [] Eyes: Denies change in visual acuity. [] HENT: Denies nasal congestion or sore throat. [] Respiratory: Denies cough or shortness of breath. [] Cardiovascular: Denies chest pain or edema. [] GI: Reports abdominal pain, nausea and vomiting, denies diarrhea : Denies dysuria. [] Musculoskeletal: Denies back pain or joint pain. [] Integument: Denies rash. [] Neurologic: Denies headache, focal weakness or sensory changes. [] Psychiatric: Denies depression or anxiety. [] Heart Score: C/O Chest Pain: N/A Risk Factors: Risk Factors: DM, Current or recent (<one month) smoker, HTN, HLP, family history of CAD, obesity. Risk Scores: Score 0 - 3: 2.5% MACE over next 6 weeks - Discharge Home Score 4 - 6: 20.3% MACE over next 6 weeks - Admit for Clinical Observation Score 7 - 10: 72.7% MACE over next 6 weeks - Early Invasive Strategies Current Medications: Current Medications Medications (Trade) Dose Ordered Sig/Oumar Start Time Stop Time Status Last Admin Dose Admin Famotidine (Pepcid Vial) 20 mg STK-MED ONCE 11/25/21 14:31 11/25/21 15:05 DC Haloperidol Lactate (Haldol Inj) 5 mg STK-MED ONCE 11/25/21 14:31 11/25/21 15:05 DC Sodium Chloride 1,000 ml @ 1,000 mls/hr 1X ONCE 11/25/21 14:30 11/25/21 15:29 DC 11/25/21 14:30 1,000 MLS/HR Allergies: Allergies: Allergies Coded Allergies Type Severity Reaction Last Updated Verified No Known Drug Allergies 09/11/21 No Physical Exam: PE: Constitutional: Well developed, well nourished, no acute distress, non-toxic appearance. [] HENT: Normocephalic, atraumatic, bilateral external ears normal, oropharynx moist, no oral exudates, nose normal. [] Eyes: PERRLA, EOMI, conjunctiva normal, no discharge. [] Neck: Normal range of motion, no tenderness, supple, no stridor. [] Cardiovascular:Heart rate regular rhythm, no murmur [] Lungs & Thorax: Bilateral breath sounds clear to auscultation [] Abdomen: Bowel sounds normal, soft, no tenderness, no masses, no pulsatile masses. [] Skin: Warm, dry, no erythema, no rash. [] Back: No tenderness, no CVA tenderness. [] Extremities: No tenderness, no cyanosis, no clubbing, ROM intact, no edema. [] Neurologic: Alert and oriented X 3, normal motor function, normal sensory function, no focal deficits noted. [] Psychologic: Affect normal, judgement normal, mood normal. [] Current Patient Data: Labs: Laboratory Tests Test 11/25/21 14:25 11/25/21 14:38 White Blood Count 12.1 x10^3/uL (4.0-11.0) H Red Blood Count 4.75 x10^6/uL (3.50-5.40) Hemoglobin 14.5 g/dL (12.0-15.5) Hematocrit 41.2 % (36.0-47.0) Mean Corpuscular Volume 87 fL (79-100) Mean Corpuscular Hemoglobin 31 pg (25-35) Mean Corpuscular Hemoglobin Concent 35 g/dL (31-37) Red Cell Distribution Width 13.8 % (11.5-14.5) Platelet Count 460 x10^3/uL (140-400) H Neutrophils (%) (Auto) 90 % (31-73) H Lymphocytes (%) (Auto) 4 % (24-48) L Monocytes (%) (Auto) 4 % (0-9) Eosinophils (%) (Auto) 0 % (0-3) Basophils (%) (Auto) 1 % (0-3) Neutrophils # (Auto) 10.9 x10^3/uL (1.8-7.7) H Lymphocytes # (Auto) 0.5 x10^3/uL (1.0-4.8) L Monocytes # (Auto) 0.5 x10^3/uL (0.0-1.1) Eosinophils # (Auto) 0.0 x10^3/uL (0.0-0.7) Basophils # (Auto) 0.1 x10^3/uL (0.0-0.2) Segmented Neutrophils % 86 % (35-66) H Band Neutrophils % 2 % (0-9) Lymphocytes % 6 % (24-48) L Monocytes % 6 % (0-10) Platelet Estimate Increased (ADEQUATE) Sodium Level 139 mmol/L (136-145) Potassium Level 3.6 mmol/L (3.5-5.1) Chloride Level 103 mmol/L (98-107) Carbon Dioxide Level 22 mmol/L (21-32) Anion Gap 14 (6-14) Blood Urea Nitrogen 6 mg/dL (7-20) L Creatinine 0.6 mg/dL (0.6-1.0) Estimated GFR (Cockcroft-Gault) 116.6 BUN/Creatinine Ratio 10 (6-20) Glucose Level 133 mg/dL (70-99) H Calcium Level 9.1 mg/dL (8.5-10.1) Total Bilirubin 0.5 mg/dL (0.2-1.0) Aspartate Amino Transferase (AST) 20 U/L (15-37) Alanine Aminotransferase (ALT) 38 U/L (14-59) Alkaline Phosphatase 87 U/L (46-116) Total Protein 8.2 g/dL (6.4-8.2) Albumin 4.1 g/dL (3.4-5.0) Albumin/Globulin Ratio 1.0 (1.0-1.7) Lipase 47 U/L (73-393) L Ethyl Alcohol Level < 10 mg/dL (0-10) Urine Collection Type Unknown Urine Color (Auto) Yellow Urine Turbidity Turbid Urine pH (Auto) 5.5 (<5.0-8.0) Urine Specific [place] 1.029 (1.000-1.030) Urine Protein (Auto) 50 mg/dL (Negative) Urine Glucose (Auto)(UA) Negative mg/dL (Negative) Urine Ketones (Auto) 100 mg/dL (Negative) Urine Blood (Auto) Moderate (Negative) Urine Nitrite Negative (Negative) Urine Bilirubin (Auto) Negative (Negative) Urine Urobilinogen (Auto) Normal mg/dL (Normal) Urine Leukocyte Esterase (Auto) Negative (Negative) Urine RBC 0 /HPF (0-2) Urine WBC 0 /HPF (0-4) Urine Squamous Epithelial Cells Mod /LPF Urine Amorphous Sediment Present /HPF Urine Bacteria 0 /HPF (0-FEW) Urine Mucus Marked /LPF Urine Opiates Screen Neg (NEG) Urine Methadone Screen Neg (NEG) Urine Barbiturates Neg (NEG) Urine Phencyclidine Screen Neg (NEG) Urine Amphetamine/Methamphetamine Neg (NEG) Urine Benzodiazepines Screen Neg (NEG) Urine Cocaine Screen Neg (NEG) Urine Cannabinoids Screen Pos (NEG) Urine Ethyl Alcohol Neg (NEG) Laboratory Tests 11/25/21 14:25 Laboratory Tests 11/25/21 14:25 Vital Signs: Vital Signs Date Time Temp Pulse Resp B/P (MAP) Pulse Ox O2 Delivery O2 Flow Rate FiO2 11/25/21 14:25 98.0 98 20 160/100 (120) 98 98.0 EKG: EKG: [] Radiology/Procedures: Radiology/Procedures: [] Course & Med Decision Making: Course & Med Decision Making Pertinent Labs and Imaging studies reviewed. (See chart for details) This a 31-year-old female patient well-known to this ED for cannabis induced hyperemesis presenting today complaining of nausea and vomiting that began 2 days ago. Patient has multiple visits in this ED for the same complaint. CBC CMP UA negative for any acute findings. UDS positive for marijuana use. She was given IV fluids in the ED. Given Zofran and Haldol as well as Pepcid. Instructed to consider not using marijuana. Discharge to home. Follow-up with her own doctor next week. Brendan Disclaimer: Brendan Disclaimer: This electronic medical record was generated, in whole or in part, using a voice recognition dictation system. Departure Departure Impression: Primary Impression: Cannabis hyperemesis syndrome concurrent with and due to cannabis abuse Disposition: HOME / SELF CARE / HOMELESS Condition: STABLE Referrals: DYLON AMARO (PCP) follow up next week JUAN RAMON MULLER MD follow up in one week Patient Instructions: Marijuana Abuse-Brief, Nausea and Vomiting Additional Instructions: You were evaluated in the emergency room for nausea and vomiting. Your work-up in the emergency room is negative for any acute findings. You were noted to have marijuana in your urine drug screen. This drug tends to cause people nausea and vomiting frequently. Consider not using this drug. Please follow-up with your primary care doctor as well as your GI doctor as soon as possible. Scripts Metoclopramide Hcl (REGLAN) 10 Mg Tablet 1 TAB PO TID, #20 TAB 0 Refills before food and bedtime Prov: ALAN REYNA APRN 11/25/21 Ondansetron (ONDANSETRON ODT) 4 Mg Tab.rapdis 1 TAB PO PRN Q6-8HRS, #16 TAB Prov: ALAN REYNA APRN 11/25/21 ALAN REYNA APRN November 25, 2021 15:41
[2021-11-25 15:58] VITALS: BP 130/82
[2021-11-25] MEDS ORDERED: METOCLOPRAMIDE HCL 10 MG/2 ML VIAL. IVP ONE (16:00)
== END 2021-11-25 16:09 | disposition home or self-care (01) ==
LOC: ER 14:03
DX: F12.188 Cannabis abuse with other cannabis-induced disorder (principal); F31.9 Bipolar disorder, unspecified
CPT/HCPCS: 36415; 80053; 80307; 81001; 83690; 85007; 85025; 96361; 96374; 96375; 99284; G0480; J1630; J2765; J3490; J7030